=== PATIENT | female | born 1985 | race Caucasian/White ===

== ENCOUNTER 2021-03-05 19:40 | Emergency (ER) | payer OTHER, SELFPAY ==
--- NOTE | ~2021-03-05 | XR_ITS ---
EXAMINATION: XR SHOULDER, LEFT CLINICAL INFORMATION: Injury. Decreased range of motion COMPARISON: None TECHNIQUE: AP external rotation, Grashey, scapular Y, and axillary views of the left shoulder. FINDINGS: The bones and soft tissues are normal. No fracture. Glenohumeral and acromioclavicular alignment is anatomic with normal joint space. No abnormal soft tissue calcifications. XR/XR shoulder LT min 2V IMPRESSION: Unremarkable left shoulder.
[2021-03-05 20:27] VITALS: BP 107/66; PULSE 72; RESP 16; TEMP 36.7; O2SAT 97; BMI 29.2
--- NOTE | 2021-03-05 22:06 | ED_ITS ---
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 Patient work at the [employer], patient was pushing a heavy box and felt a pop in the left shoulder then started to have pain after that, patient is able to move the shoulder pain started after she tried to raise her left shoulder up to 60 degree. Patient otherwise declined any other symptoms. Related Data Previous Rx's Medication Instructions Recorded ibuprofen 600 mg tablet 600 mg PO Q8H PRN #10 tab 03/05/21 Allergies Allergy/AdvReac Type Severity Reaction Status Date / Time No Known Allergies Allergy Unverified 03/05/21 20:33 [No Known Allergies*] Review of Systems Review of Systems: All other systems are reviewed and are negative Constitutional: Reports as per HPI and Reports no additional constitutional complaints Eyes: Reports as per HPI and Reports no additional eye complaints Reports system reviewed and no additional complaints, except as documented Cardiovascular: Reports as per HPI and Reports no additional cardiovascular complaints Respiratory: Reports as per HPI and Reports no additional respiratory complaints Gastrointestinal: Reports as per HPI and Reports no additional gastrointestinal complaints Genitourinary: Reports no additional female genitourinary complaints Musculoskeletal: Reports no additional musculoskeletal complaints Skin/Breast: Reports system reviewed and no additional complaints, except as docu Psychiatric: Reports no additional psychiatric complaints Endocrine: Reports no additional endocrine complaints Hematologic/Lymphatic: Reports no additional hematologic/lymphatic complaints Allergic/Immunologic: Reports no additional allergic/immunologic complaints Reports system reviewed and no additional complaints, except as documented and Reports Abnormal speech present [facility] Past Medical History Medical History Asthma Social History Social History Advance Directives: No Advance Directives Information Provided: No Patient : No Physical Exam Vital Signs: Vital Signs: Last Vital Signs Temp 98.0 F 03/05/21 20:27 Pulse 72 03/05/21 20:27 Resp 16 03/05/21 20:27 BP 107/66 03/05/21 20:27 Pulse Ox 97 03/05/21 20:27 Body Mass Index 29.2 Vital signs have been reviewed as appeared to be correct. Blood pressure normal. Heart rate normal. Respiration rate normal. Temperature normal. Oxygen saturation normal. Appearance: Alert. Oriented X3. No acute distress. Head: Normal external exam. Normocephalic. Atraumatic. No Henry signs noted. No raccoon eyes noted Eyes: PERRLA. EOMI. Conjunctiva and sclera normal. Eyelids normal. ENT: TM's Normal. Pharynx normal. Uvula midline. Moist mucous membranes. No trismus noted. No drooling noted. No muffled voice noted. Neck: Normal inspection. Neck supple. FROM. No adenopathy. Thyroid Normal. No meningeal signs. No neck mass noted. CVS: Normal heart rate and rhythm. Heart sound normal. No murmurs noted. Pulses normal throughout. Respiratory: No respiratory distress. Painless inspiration. Breath sounds normal. No wheezes/rales/rhonchi noted. Chest nontender. No accessory muscle usage noted or decreased air movement noted. Abdomen: Soft and nontender. Bowel sounds normal in all 4 quadrants. No distention noted. No organomegaly noted. No visible injury noted. Back: No CVA tenderness. Full range of motion noted. Skin: Skin warm and dry. Normal skin color. Normal skin turgor. No rashes/lesions/lacerations noted. Extremities: Left shoulder held in adduction position, unable to abduct the shoulder after 45 degree, no deformity, no anterior fullness, neurovascularly intact. Neuro: Oriented X 3. Cranial nerve exam: II-XII are grossly intact No motor deficit. No sensory deficit. Reflexes normal. Course Course Course Narrative: Assessment and plan. 36-year-old female had left shoulder injury while working, physical exam and x- ray are more consistent with rotator cuff tendinitis. Shoulder sling/NSAIDs/wrist/follow-up with Dr. Duron. MDM - Extremity (Nontraumatic) Imaging Data Left shoulder x-ray: Radiologist's impression: The bones and soft tissues are normal. No fracture. Glenohumeral and acromioclavicular alignment is anatomic with normal joint space. No abnormal soft tissue calcifications.? Discharge Plan Discharge Clinical Impression: Tendinitis of left rotator cuff Patient Disposition: Home, Self-Care Instructions: Rotator Cuff Injury (ED), Rotator Cuff Injury Exercises (DC) Prescriptions: New ibuprofen 600 mg tablet 600 mg PO Q8H PRN (Reason: pain) Qty: 10 RF: 0 Referrals: Vaibhav Duron MD [Physician] - 2 days Stand Alone Forms: Work/School Release
[2021-03-05] MEDS: oxyCODONE HCl Immed Release 5 MG TABLET PO (22:24)
[2021-03-05] MEDS: Ibuprofen 600 MG TABLET PO (22:25)
== END 2021-03-05 22:33 | disposition home or self-care (01) ==
PROVIDERS: Emergency Provider Emergency Medicine
DX: M75.32 Calcific tendinitis of left shoulder (principal); Z79.899 Other long term (current) drug therapy
CPT/HCPCS: 73030; 99284

== ENCOUNTER 2021-11-22 14:40 | Emergency (ER) | payer OTHER, SELFPAY ==
[2021-11-22 15:02] VITALS: BP 114/67; PULSE 112; RESP 18; TEMP 36.8; O2SAT 99; BMI 28.7
[2021-11-22 15:27] LABS: COVID-19 Test Positive (Negative); Strep A Nucleic Acid Negative (Negative)
--- NOTE | 2021-11-22 20:12 | ED_ITS ---
HPI - URI/Sore Throat General Chief Complaint: Upper Respiratory Symptoms Stated Complaint: Sore throat/Cough/Body aches Time Seen by Provider: 11/22/21 20:12 Source: patient Mode of arrival: ambulatory Limitations: no limitations History of Present Illness HPI Narrative: 36 yold female presents to the ED for coughing, body, chilss, runny, and fever. Related Data Previous Rx's Medication Instructions Recorded ibuprofen 600 mg tablet 600 mg PO Q8H PRN #10 tab 03/05/21 Allergies Allergy/AdvReac Type Severity Reaction Status Date / Time No Known Allergies Allergy Unverified 03/05/21 20:33 [No Known Allergies*] Review of Systems Review of Systems: fever, runny nose, coughing, sore throat Yes all other systems are reviewed and are negative [facility] Past Medical History Medical History Asthma Social History Social History Advance Directives: No Advance Directives Information Provided: No Physical Exam Vital Signs: Vital Signs: Last Vital Signs Temp 98.3 F 11/22/21 15:02 Pulse 112 H 11/22/21 15:02 Resp 18 11/22/21 15:02 BP 114/67 11/22/21 15:02 Pulse Ox 99 11/22/21 15:02 BMI result Body Mass Index 28.7 Const: General: cooperative, healthy appearing, comfortable, no acute distress, well developed, alert, awake and Physically active Orientation/consciousness: patient oriented x3 HEENT: Head: Yes normal to inspection, Yes No palpable skull fracture present, Yes normocephalic, Yes atraumatic and No abrasion Eyes: General: appearance normal, both eyes and all related structures Neck: Neck: Yes normal visual inspection, Yes full ROM, Yes no lymphadenopathy, Yes no meningeal signs, Yes trachea midline, Yes supple, No anterior neck swelling and No tender Chest: Chest palpation & inspection: normal inspection of the chest and normal palpation of entire chest wall Resp: Effort & Inspection: normal respiratory effort and able to speak in complete sentences Auscultation: clear to auscultation bilaterally Cardio: Jugular venous distension: no JVD Heart sounds: S1 normal heart farnaz nd present and S2 normal heart sound present GI: Inspection: Yes normal to inspection and No abdominal wall ecchymosis Palpation (GI): Soft to palpation, not firm, nontender, no guarding and not rigid : General: No CVA tenderness and Yes no CVA tenderness Back/Spine/Pelvis: Back: no CVA tenderness, No CVA tenderness and No back tenderness Skin: General skin exam: no rashes or lesions noted and elasticity normal Neuro: General: patient oriented x3, gait normal, no meningeal signs and CN's II-XI intact bilaterally Cranial nerves: Yes CN's II-XII intact bilaterally Extrem: General: Yes normal to inspection and Yes full ROM Psych: Appearance: grossly normal, well kempt and not disheveled Course Course Course Narrative: Covid ordered Reevaluation(s) Reevaluation #1: Patient walked out from the ED before I can re-evaluate her and give her COVID education. Patient was informed I had to assist with a traumatic code. WHen I returned to the Room after code patient was no longer in the room to be evaulted adn receive discharge papers. Time: 20:30 MDM - URI/Sore Throat Lab Data Labs: Lab Results 11/22/21 11/22/21 Range/Units 15:04 15:04 COVID-19 (KELLI) Positive A (Negative) COVID-19 Clin Com See Note S. pyogenes GrpA JAIME Negative (Negative) Discharge Plan Discharge Clinical Impression: COVID-19 Patient Disposition: Elopement Instructions: COVID-19 (Coronavirus Disease 2019) (ED) Additional Instructions: Tienes COVID-19. Recomiende el autoaislamiento nick al menos 7 d?as. Regrese al servicio de urgencias por cualquier dolor en el pecho, dificultad para respirar, dolor en las piernas, hinchaz?n de la pantorrilla, tos con kailee, saturaci?n de ox?haley por debajo del 94 % en el pulsiox?metro port?til de la far macia, debilidad o cualquier otro s?ntoma preocupante. Por favor, brad un seguimiento con PCP Prescriptions: No Action ibuprofen 600 mg tablet 600 mg PO Q8H PRN (Reason: pain) Qty: 10 0RF Stand Alone Forms: Work/School Release Discharge Date/Time: 11/22/21 20:12 Print Language: Armenian
== END 2021-11-22 20:12 | disposition left against medical advice (07) ==
PROVIDERS: Emergency Provider Internal Medicine
DX: U07.1 COVID-19 (principal)
CPT/HCPCS: 87635; 87651; 99283

== ENCOUNTER 2023-08-25 03:59 | Emergency (ER) | payer MEDICAID, SELFPAY ==
[2023-08-25 04:09] VITALS: BP 126/77; PULSE 85; RESP 16; TEMP 36.8; O2SAT 97; BMI 29.3
[2023-08-25 04:32] LABS: MANUAL DIFF FLAG NO
[2023-08-25 04:33] LABS: Basophils Absolute Auto 0.1 X10*3/uL (0.0-0.2); Eosinophils Absolute Auto 0.5 X10*3/uL (0.0-0.4); Eosinophils Percent Auto 5.4 % (0-4); Hematocrit 37.9 % (37.0-47.0); Hemoglobin 12.4 g/dl (12.0-16.0); Imm Gran Abs Auto 0.03 X10*3/uL (0.00-0.03); Imm Gran Pct Auto 0.3 % (0.0-0.4); Lymphocytes Absolute Auto 1.7 X10*3/uL (1.2-4.9); Lymphocytes Percent Auto 19.4 % (20-40); Mean Corpuscular HGB Conc 32.7 g/dl (31.0-35.0); Mean Corpuscular Hemoglobin 26.2 pg (27.0-33.0); Monocytes Absolute Auto 0.7 X10*3/uL (0.1-1.2); Monocytes Percent Auto 7.7 % (2-11); Neutrophils Absolute Auto 5.7 x10*3/uL (2.0-8.3); Neutrophils Percent Auto 66.2 % (45-73); Platelet Count 272 X10*3/uL (160-400); Red Blood Count 4.74 X10*6/uL (4.20-5.50); Red Cell Distribution Width 13.9 % (11.0-16.0); White Blood Count 8.7 X10*3/uL (4.8-10.8)
[2023-08-25 04:48] LABS: Alanine Aminotransferase 32 U/L (0-31); Alkaline Phosphatase 151 U/L (39-117); Anion Gap 11 (12-20); Aspartate Amino Transferase 27 U/L (5-31); Bilirubin Total 0.2 mg/dL (0.0-1.0); Blood Urea Nitrogen 20 mg/dL (9-16); Calcium 9.4 mg/dL (8.4-10.2); Carbon Dioxide 23 mmol/L (22-29); Chloride 107 mmol/L (96-108); Creatinine Clr Calc Pharmacy 99.6; Estimated Glomerular Filt Rate > 60; Glucose Random 95 mg/dL (60-115); Lipase 20 U/L (8-78); Potassium 3.8 mmol/L (3.3-5.1); Sodium 137 mmol/L (135-145); Total Protein 6.7 g/dL (6.5-8.0)
--- NOTE | 2023-08-25 05:13 | ED_ITS ---
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 Related Data Previous Rx's Medication Instructions Recorded ketorolac 10 mg tablet 10 mg PO Q6H PRN pain 5 days #20 08/25/23 tabs Allergies Allergy/AdvReac Type Severity Reaction Status Date / Time No Known Allergies Allergy Verified 08/25/23 04:11 [No Known Allergies*] Review of Systems 2 Review of Systems: Pertinent positives and negatives as stated in HPI [facility] Past Medical History Source: nursing notes reviewed Medical History Asthma Social History Social History Advance Directives: No Advance Directives Information Provided: No Physical Exam 2 Vital Signs: Vital Signs: Last Vital Signs Temp 98.3 F 08/25/23 04:09 Pulse 85 08/25/23 04:09 Resp 16 08/25/23 04:09 BP 126/77 08/25/23 04:09 Pulse Ox 97 08/25/23 04:09 O2 Del Method Room Air 08/25/23 04:09 BMI result Body Mass Index 29.3 VITAL SIGNS: Reviewed. GENERAL: Well developed, well nourished, in no acute distress. HEAD: Normocephalic/atraumatic EYES: PERRLA, EOMI EARS: Ext canals without abnormality NOSE: Nares patent bilateral OROPHARYNX: no oral lesions noted, posterior pharynx clear NECK: Supple, no adenopathy LUNGS: Normal breath sounds. No adventitious sounds or accessory muscle use. SpO2<97> CARDIOVASCULAR: Regular rate and rhythm without noted murmurs ABDOMEN: Soft, non-tender, non-distended with bowel sounds. BACK: No midline vertebral tenderness to palpation or step-offs noted, mild paraspinal tenderness to palpation over the L4-L5 paraspinal area MUSCULOSKELETAL: No tenderness, deformities, or effusions noted on gross inspection. EXTREMITIES: No cyanosis, clubbing or edema. SKIN: Inspection of the skin reveals no rashes NEUROLOGIC: Alert and oriented x 4. Strength and sensation to light touch were grossly intact x 4. Medical Decision Making Medical Decision Making [facility] Narrative: 38-year-old female with history and clinical presentation DDX: UTI, low clinical suspicion for renal colic and no clinical suspicion for equina. Patient will receive combination analgesics and lidocaine patch. I reviewed all investigations and hematologic indices are negative for leukocytosis or left shift and there is no anemia or thrombocytopenia. Chemistry indices do not demonstrate an JUDSON or electrolyte derangements and patient has a chronically elevated ALT the suspect is secondary to fatty liver. Lipase is within normal limits. Urinalysis is negative for UTI or hematuria. My interpretation is it patient is experiencing acute on chronic back pain without concerning neurologic deficits or infections. She is otherwise discharged home instructed follow-up with primary care doctor. Differential Diagnosis Differential Diagnoses: The differential diagnosis associated with the presentation includes Please see the discussion above Admission/Observation Consideration of admission/observation: Escalation of care including admission/observation considered Please see this discussion Lab Data MDM Lab Attestation statement: I reviewed the patient's lab results. Please see the discussion above 08/25/23 04:28 08/25/23 04:28 Labs: Lab Results 08/25/23 08/25/23 Range/Units 04:28 05:19 WBC 8.7 (4.8-10.8) X10*3/uL RBC 4.74 (4.20-5.50) X10*6/uL Hgb 12.4 (12.0-16.0) g/dl Hct 37.9 (37.0-47.0) % MCV 80.0 (80.0-98.0) fL MCH 26.2 L (27.0-33.0) pg MCHC 32.7 (31.0-35.0) g/dl RDW 13.9 (11.0-16.0) % Plt Count 272 (160-400) X10*3/uL MPV 12.0 (9.4-12.3) fL Immature Gran % (Auto) 0.3 (0.0-0.4) % Neut % (Auto) 66.2 (45-73) % Lymph % (Auto) 19.4 L (20-40) % [place] % (Auto) 7.7 (2-11) % Eos % (Auto) 5.4 H (0-4) % Baso % (Auto) 1.0 (0-2) % Lymph # (Auto) 1.7 (1.2-4.9) X10*3/uL [place] # (Auto) 0.7 (0.1-1.2) X10*3/uL Eos # (Auto) 0.5 H (0.0-0.4) X10*3/uL Baso # (Auto) 0.1 (0.0-0.2) X10*3/uL Abs Immat Gran (auto) 0.03 (0.00-0.03) X10*3/uL Absolute Neuts (auto) 5.7 (2.0-8.3) x10*3/uL Absolute Nucleated RBC 0.000 (0.0-0.012) X10*3/uL Nucleated RBC % (auto) 0.0 (0.0-0.2) /100WBC Sodium 137 (135-145) mmol/L Potassium 3.8 (3.3-5.1) mmol/L Chloride 107 (96-108) mmol/L Carbon Dioxide 23 (22-29) mmol/L Anion Gap 11 L (12-20) BUN 20 H (9-16) mg/dL Creatinine 0.70 (0.5-1.4) mg/dL Estim Creat Clear Calc 99.6 Estimated GFR > 60 Random Glucose 95 (60-115) mg/dL Calcium 9.4 (8.4-10.2) mg/dL Total Bilirubin 0.2 (0.0-1.0) mg/dL AST 27 (5-31) U/L ALT 32 H (0-31) U/L Alkaline Phosphatase 151 H (39-117) U/L Total Protein 6.7 (6.5-8.0) g/dL Albumin 4.0 (3.5-5.0) g/dL Lipase 20 (8-78) U/L Urine Color Yellow Urine Appearance Clear Urine pH 7.0 (5.0-9.0) Ur Specific [place] 1.020 (1.005-1.025) Urine Protein Negative (Neg-Trace) mg/dL Urine Glucose (UA) Negative (Negative) mg/dL Urine Ketones Negative (Negative) mg/dL Urine Blood Negative (Negative) Urine Nitrite Negative (Negative) Ur Leukocyte Esterase Negative (Negative) External Record Review External record reviewed: Outpatient record and Prior outpatient labs Critical Care Time Critical Care Time Critical Care Time: Yes Total Critical Care Time: 30 Attestation: I personally attest to this time spent taking care of the patient. Discharge Plan Discharge Clinical Impression: Acute exacerbation of chronic low back pain Patient Disposition: Home, Self-Care Instructions: Back Pain (ED), Lower Back Exercises (ED) Additional Instructions: 1. Tylenol 1000 mg, por v?a oral, cada 6 horas seg?n sea necesario para controlar el dolor. No exceda los 4000 mg en 24 horas. 2. Parche de lidoca?na, apl?quelo en el ?justo de m?xima sensibilidad haseeb se indica en el paquete exterior. 3. Josh un seguimiento con quispe m?dico de atenci?n primaria para analizar dora posible derivaci?n a fisioterapia. Regrese a la arminda de emergencias si los s?ntomas empeoran. 1. Tylenol 1000 mg, orally, every 6 hours as needed for pain control. Do not exceed 4000 mg within 24 hours. 2. Lidocaine patch, apply to area of maximal tenderness as directed on the outside packaging. 3. Follow-up with your primary care doctor to discuss possible referral to physical therapy. Return to the ER for any worsening symptoms. Prescriptions: New ketorolac 10 mg tablet 10 mg PO Q6H PRN (Reason: pain) 5 Days Qty: 20 0RF Rx Instructions: Patient received Toradol in the emergency room. Discontinued ibuprofen 600 mg tablet 600 mg PO Q8H PRN (Reason: pain) Qty: 10 0RF Print Language: Welsh
[2023-08-25 05:25] LABS: Appearance Urine Clear; Color Urine Yellow; Glucose Urine UA Negative (Negative); Leukocyte Esterase Urine Negative (Negative); Nitrite Urine Negative (Negative); Urine Blood Negative (Negative); Urine Ketones Negative (Negative); Urine Protein Negative (Neg-Trace)
[2023-08-25] MEDS: Lidocaine 4 % Patch ADH..PATCH 1 PATCH TRANSDERMA (06:04)
[2023-08-25] MEDS: Ketorolac Tromethamine 15 MG/ML VIAL IM (06:05)
[2023-08-25] MEDS: Acetaminophen 325 MG TABLET 975 MG PO (06:05)
== END 2023-08-25 06:18 | disposition home or self-care (01) ==
PROVIDERS: Emergency Provider Student in an Organized Health Care Education/Training Program
DX: M54.50 Low back pain, unspecified (principal); R35.0 Frequency of micturition; Z79.899 Other long term (current) drug therapy
CPT/HCPCS: 36415; 80053; 81003; 83690; 85025; 96372; 99283; 99284; J1885

== ENCOUNTER 2023-12-13 20:44 | Emergency (ER) | payer MEDICAID, SELFPAY ==
[2023-12-13 21:02] VITALS: BP 116/76; PULSE 93; RESP 18; TEMP 36.7; O2SAT 100; BMI 27.8
[2023-12-13 23:32] VITALS: BP 104/63; PULSE 68; RESP 20; TEMP 36.4; O2SAT 97
--- NOTE | 2023-12-13 23:49 | ED_ITS ---
HPI - General Adult General Chief complaint: General Medical Stated complaint: rectal pain and pressure Time Seen by Provider: 12/13/23 23:40 Source: patient Mode of arrival: ambulatory Limitations: no limitations History of Present Illness HPI narrative: Patient is a 38 year old female who presents emergency department with approximate 24 hours of rectal spasming. Reports pain only felt during times of spasming, states spasm typically lasts a few minutes before self-resolving. She denies any precipitating trauma, injury, or foreign body insertion into the rectum. She denies constipation, diarrhea, straining for bowel movement, hematochezia, melena. Denies history of fissure or hemorrhoids. She denies associated pelvic pain, abdominal pain or back pain. Denies symptoms. Denies currently menstruating. States she has never had a colonoscopy, denies recent unintentional weight loss, anorexia, nausea, vomiting. Denies history of colon cancer in immediate family members. Related Data Previous Rx's ?Medication ?Instructions ?Recorded ketorolac 10 mg tablet 10 mg PO Q6H PRN pain 5 days #20 08/25/23 tabs hydrocortisone acetate 25 mg 25 mg MO BID #24 ea 12/14/23 rectal suppository (Anusol-HC) Allergies Allergy/AdvReac Type Severity Reaction Status Date / Time No Known Allergies Allergy Verified 12/13/23 21:05 [No Known Allergies*] Review of Systems Review of Systems: Yes all other systems are reviewed and are negative COUNTS INCLUDE 234 BEDS AT THE [facility] Past Medical History Attestation statement: The following information was validated with the patient. Source: old records reviewed Medical History Asthma Social History Social History Smoked in Last 30 Days: No Advance Directives: No Advance Directives Information Provided: No Do you have a plan to hurt others: No Plan Patient : No Physical Exam ED Vital Signs: Vital Signs - 24 hr 12/13/23 21:02 12/13/23 23:32 Temperature 98.0 F 97.6 F Pulse Rate 93 68 Respiratory Rate 18 20 Blood Pressure 116/76 104/63 Pulse Oximetry 100 97 Oxygen Delivery Method Room Air Room Air BMI result Body Mass Index 27.8 Appearance: Alert.?Oriented to person, place and time. No acute distress.?Normal affect.? Neck: Normal inspection.? Neck supple.?? CVS: Heart sounds normal. Normal heart rate and rhythm.? Pulses normal.?? Respiratory: No respiratory distress.? Lung sounds clear to auscultation bilaterally?? Abdomen: Soft and non-tender. Normoactive bowel sounds.? Rectal: Performed with size changer, ED RN. Noted to have increased rectal tone with palpable spasming during digital rectal examination, able to palpate internal hemorrhoid, no bleeding. No external hemorrhoids or fissures. Skin: Skin warm and dry.? Normal skin color.? Neuro: Moves all extremities spontaneously. Sensation intact bilaterally. Ambulates with normal steady gait. Medications Administered Discontinued Medications Generic Name Dose Route Start Last Admin Trade Name Freq PRN Reason Stop Dose Admin Lidocaine HCl 10 ml 12/14/23 00:10 12/14/23 00:59 Lidocaine Hcl 2 % Urojet 10 Ml Jel.Pf.Bree TOPICAL 12/14/23 00:11 Not Given ONCE ONE Medical Decision Making Medical Decision Making MDM Narrative: Patient is a 38-year-old female presenting to emergency department for evaluation rectal spasming as per HPI. Overall she appears well, afebrile. Head examination is without external hemorrhoids or fissure, she does have a palpable internal hemorrhoid on digital rectal examination with evidence of rectal spasming. Suspect pain and spasm secondary to internal hemorrhoids, po ssibly internal fissure, patient agreeable to treatment plan with inserting topical Lidocaine for symptomatic management. Improvement in pain significantly, resolution of spasming. At this time stable for discharge, outpatient follow-up with primary care provider. All questions answered. Differential Diagnosis Differential Diagnoses: The differential diagnosis associated with the presentation includes (See narrative above) Prescription Management I considered prescription management with: Other (See narrative above) Discharge Plan Discharge Clinical Impression: Internal hemorrhoid Patient Disposition: Home, Self-Care Instructions: Hemorrhoids (ED) Prescriptions: New hydrocortisone acetate [Anusol-HC] 25 mg suppository 25 mg MO BID Qty: 24 0RF No Action ketorolac 10 mg tablet 10 mg PO Q6H PRN (Reason: pain) 5 Days Qty: 20 0RF Rx Instructions: Patient received Toradol in the emergency room. Referrals: Physician,Unknown J [Primary Care Provider] - Print Language: Malay
[2023-12-14 01:42] VITALS: BP 104/63; PULSE 68; RESP 20; TEMP 36.4; O2SAT 97
== END 2023-12-14 01:44 | disposition home or self-care (01) ==
PROVIDERS: Emergency Provider Internal Medicine
DX: K64.8 Other hemorrhoids (principal); K62.89 Other specified diseases of anus and rectum
CPT/HCPCS: 99283; 99284

== ENCOUNTER 2025-02-15 12:14 | Emergency (ER) | payer OTHER, SELFPAY ==
[2025-02-15 12:30] VITALS: BP 108/66; PULSE 82; RESP 16; TEMP 36.7; O2SAT 99; BMI 26.8
--- NOTE | 2025-02-15 12:34 | ED.GENADULT ---
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 Her pain started 5 days ago pain Denies any trauma. 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 She reports frequent repetitive motions. She states that about 5 years ago she had surgery for her right wrist carpal The pain is 8/10 Related Data Previous Rx's ?Medication ?Instructions ?Recorded ketorolac 10 mg tablet 10 mg PO Q6H PRN pain 5 days #20 08/25/23 tabs hydrocortisone acetate 25 mg 25 mg ME BID #24 ea 12/14/23 rectal suppository (Anusol-HC) ibuprofen 600 mg tablet 600 mg PO Q6H PRN pain #20 tabs 02/15/25 Allergies Allergy/AdvReac Type Severity Reaction Status Date / Time No Known Allergies (No Known Allergy Verified 02/15/25 12:32 Allergies*) Review of Systems Constitutional: Constitutional: Denies body ache(s), Denies chills, Denies fatigue and Denies fever(s) Cardiovascular: Cardiovascular: Denies chest pain Gastrointestinal: Gastrointestinal: Denies abdominal pain Musculoskeletal: Musculoskeletal: Reports arthralgias, Reports joint swelling and Reports limited range of motion Endocrine: Endocrine: Denies fatigue PMFSH Past Medical History Medical History Asthma Social History Social History Advance Directives: No Advance Directives Information Provided: Yes Do you have a plan to hurt others: No Plan Physical Exam ED Vital Signs: Vital Signs - 24 hr 02/15/25 12:30 02/15/25 13:02 Temperature 98.1 F 98.1 F Pulse Rate 82 82 Respiratory Rate 16 16 Blood Pressure 108/66 108/66 Pulse Oximetry 99 99 Oxygen Delivery Method Room Air Room Air BMI result Body Mass Index 26.8 Const General: healthy appearing, comfortable, no acute distress, alert and awake Nutritional Appearance: well nourished Orientation/consciousness: patient oriented x3 HENMT Head: Yes normocephalic and Yes atraumatic Eyes Eyelids: Yes eyelids normal Conjunctivae: conjunctivae normal Sclerae: sclerae normal Corneas: corneas normal Pupils: Equal, round and reactive pupils present EOM: EOMs intact bilaterally Neck Neck: Yes full ROM Resp Effort & Inspection: normal respiratory effort, able to speak in complete sentences and not labored Skin General skin exam: elasticity normal Neuro General: patient oriented x3 Cranial nerves: Yes Equal, round and reactive pupils present and Yes Bilaterally intact EOM present Cognition (Neuro): normal cognition Extrem Other: There was no obvious deformity to the left wrist. The patient has a positive Tinel sign. She retains full range of motion to the left wrist and all digits of the left hand. Radial pulses 2+ and equal. Medical Decision Making Medical Decision Making [facility] Narrative: 40-year-old female presents for evaluation of left wrist pain. This was atraumatic. No evidence of trauma, there are no evidence of infection. The patient's history exam is most consistent with carpal tunnel syndrome. She has a history of this requiring surgical repair on the right side. She will be referred to hand surgery and given instructions for symptomatic treatment Differential Diagnosis Differential Diagnoses: The differential diagnosis associated with the presentation includes Left wrist pain Carpal tunnel syndrome Gout Arthritis less likely Tests considered The following testing was considered but not selected: Consider x-ray imaging of the left wrist but this was ultimately deferred due to lack of trauma or deformity Discharge Plan Discharge Clinical Impression: Acute carpal tunnel syndrome of left wrist Patient Disposition: Home, Self-Care Instructions: Carpal Tunnel Surgery (DC) Additional Instructions: It is likely that you have carpal tunnel syndrome of the left wrist pain You may require surgery, I sent a referral to the hand surgeon, Dr. Robison. Call to schedule an appointment. Use ibuprofen as needed for pain. Avoid heavy lifting or strenuous activity. Use ibuprofen as needed for pain Prescriptions: New ibuprofen 600 mg tablet 600 mg PO Q6H PRN (Reason: pain) Qty: 20 0RF No Action ketorolac 10 mg tablet 10 mg PO Q6H PRN (Reason: pain) 5 Days Qty: 20 0RF Rx Instructions: Patient received Toradol in the emergency room. hydrocortisone acetate [Anusol-HC] 25 mg suppository 25 mg ME BID Qty: 24 0RF Referrals: Cyndi Robison MD [Physician, Hand Surgery] Referral Note: carpal tunnel left wrist Interventions: ED Discharge Assessment Last Done: 02/15/25 13:02 Discharge Date/Time: 02/15/25 13:03 Print Language: [place]
[2025-02-15 13:02] VITALS: BP 108/66; PULSE 82; RESP 16; TEMP 36.7; O2SAT 99
== END 2025-02-15 13:03 | disposition home or self-care (01) ==
PROVIDERS: Emergency Provider Emergency Medicine; PCP Internal Medicine Geriatric Medicine
DX: G56.02 Carpal tunnel syndrome, left upper limb (principal); M79.642 Pain in left hand; M25.532 Pain in left wrist
CPT/HCPCS: 99282; 99283

== ENCOUNTER 2025-03-06 13:06 | Outpatient (REF) | payer OTHER, SELFPAY ==
--- NOTE | 2025-03-06 13:10 | EMG_ITS ---
Chief complaint: Diagnosed left Carpal Tunnel Syndrome 6 years ago but no surgery yet. Started having numbness again 3 months ago. History of right CTR 6 years ago. Reason for referral: Evaluate for Carpal Tunnel Syndrome Referred by: Negrito LERNER Procedure done: Left upper extremity NCS/EMG Precautions and/or limitations: None The limb temperature was monitored continuously and remained between 32-36 degrees C during the performance of the NCS. Nerve Conduction Studies Anti Sensory Summary Table ?Stim Site NR Onset (ms) Norm Onset (ms) Peak (ms) Norm Peak (ms) O-P Amp (?V) Norm O-P Amp Site1 Site2 Delta-0 (ms) Dist (cm) Rod (m/s) Norm Rod (m/s) Left Median Anti Sensory (2nd Digit) Wrist ? 2.9 4.0 <3.6 17.8 >10 Wrist 2nd Digit 2.9 14.0 48 Left Radial Anti Sensory (Thumb) Forearm ? 1.5 2.0 <3.1 52.7 Forearm Thumb 1.5 0.0 Left Ulnar Anti Sensory (5th Digit) Wrist ? 2.1 2.8 <3.7 39.1 >15.0 Wrist 5th Digit 2.1 14.0 67 Motor Summary Table ?Stim Site NR Onset (ms) Norm Onset (ms) O-P Amp (mV) Norm O-P Amp iAmp (mV) Amp (1st) (%) Site1 Site2 Delta-0 (ms) Dist (cm) Rod (m/s) Norm Rod (m/s) Left Median Motor (Abd Poll Brev) Wrist ? 4.6 <3.9 10.8 >4.5 13.2 100.0 Elbow Wrist 2.7 19.0 70 >45 Elbow ? 7.3 10.9 13.4 100.9 Left Ulnar Motor (Abd Dig Minimi) Wrist ? 2.4 <3.0 9.8 >5 11.4 100.0 B Elbow Wrist 2.8 16.5 59 >45 B Elbow ? 5.2 7.4 9.3 75.5 A Elbow B Elbow 1.6 10.0 63 >45 A Elbow ? 6.8 7.2 9.4 73.5 EMG ?Side Muscle Nerve Root Ins Act Fibs Psw Amp Dur Poly Recrt Int Pat Comment Left 1stDorInt Ulnar C8-T1 Nml Nml Nml Nml Nml 0 Nml Complete Left FlexCarRad Median C6-7 Nml Nml Nml Nml Nml 0 Nml Complete Left FlexCarpiUln Ulnar C8,T1 Nml Nml Nml Nml Nml 0 Nml Complete Left Biceps Musculocut C5-6 Nml Nml Nml Nml Nml 0 Nml Complete Left Triceps Radial C6-7-8 Nml Nml Nml Nml Nml 0 Nml Complete Left Deltoid Axillary C5-6 Nml Nml Nml Nml Nml 0 Nml Complete FINDINGS: Left median motor nerve showed prolonged distal latency, normal amplitude and normal conduction velocity. Left median sensory nerve showed prolonged peak latency. All other nerves tested were within normal. Concentric needle EMG was performed in selected muscles of the left upper extremity. Study did not reveal signs of electric abnormalities as shown in the table above. IMPRESSION: 1. This is an abnormal study. 2. There is electrodiagnostic evidence for left moderate-severe median neuropathy at the wrist, consistent with carpal tunnel syndrome. 3. There is no electrodiagnostic evidence for ulnar neuropathy, brachial plexopathy, or cervical radiculopathy. Thank you for your kind referral. Camelia Vidales MD, SALIMA Board Certified, [place] Board of Physical Medicine and Rehabilitation (ABPMR) Board Certified, [place] Board of Electrodiagnostic Medicine (ABEM) [place] [id number] [facility] [place]
--- OUTSIDE RECORDS SUMMARY | 2025-03-06 16:41 | XMS_ITS | Clinical Summary ---
Author Organization [facility] Address [address] [place] [address] Care Team Providers Care Test Borer Name Role Phone Dorys Alfaro PA-C Primary Care Provider Source Comments PLEASE NOTE, if this patient is a minor, it may be UNLAWFUL to discuss sensitive information that is contained in these records (such as FAMILY PLANNING, MENTAL HEALTH or SUBSTANCE ABUSE) with the minor patient's parent or other person without the patient's specific authorization.[facility] Allergies No known active allergies Medications miscellaneous medical supply miscIndication s:Bilateral carpal tunnel syndrome by miscellaneous route once daily Bilateral CTS splint, disp 1pair, dx bilateral CTS, lifetime need 1 Each 9 Active acetaminophen (TYLENOL) 500 mg tabletIndicati ons:Left-sided chest pain,Acute pain of left shoulder Take 1 Tablet by mouth every 6 (six) hours as needed for pain 60 Tablet 1 2 Active benzonatate (TESSALON) 200 mg capsuleIndicat ions:COVID-19 Take 1 Capsule by mouth 3 (three) times daily as needed for cough 15 Capsule 2 Active VENTOLIN HFA 90 mcg/actuation inhaler INHALE 2 PUFFS INTO THE LUNGS EVERY 4 (FOUR) HOURS NEEDED FOR SHORTNESS OF BREATH 18 g 4 3 Active diclofenac sodium (VOLTAREN) 1 % gelIndications :Left-sided chest pain,Acute pain of left shoulder APPLY TOPICALLY 2 (TWO) TIMES DAILY NEEDED FOR PAIN 100 g 1 3 Active omeprazole (PRILOSEC) [address] capsule TAKE 1 CAPSULE BY MOUTH EVERY MORNING BEFORE BREAKFAST DO NOT CRUSH OR CHEW. 90 Capsule 1 4 Active Active Problems Problem Noted Date Diagnosed Date Overweight 09/01/2018 LSIL cannot exclude HSIL, Hi gh risk HPV positive 07/23/2016, STEPHANIE 1 on colpo 09/30/2016 08/06/2016 H. pylori infection 04/2016 s/p treatment 2016 Liver hemangioma (1.3cm) on ultrasound 05/10/2016, repeat ultrasound in 6 months for stability 05/06/2016 ALEJANDRO (nonalcoholic steatohepatitis) 05/06/2016 Gastritis 05/06/2016 Bilateral ovarian cysts 05/06/2016 Functional constipation 05/06/2016 S/P tubal ligation 05/06/2016 Immunizations Immunization Administration Dates Next Due HEP A-HEP B ([place]) 09/01/2018 PFIZER COVID VACCINE, PURPLE CAP, 12+ 05/20/2021 Social History Tobacco Use Types Packs/Day Years Used Date Smoking Tobacco: Never Smokeless Tobacco: Never Alcohol Use Standard Drinks/Week Comments Yes 3 (1 standard drink = 0.6 oz pur e alcohol) social Social Connections Answer Date Recorded Connectedness 0 02/25/2024 Financial Resource Strain Answer Date R ecorded Financial Resource Strain 0 2018 Stress Answer Date Recorded Stress 0 02/11/2019 Physical Activity Answer Date Recorded Physical Activity 0 02/11/2019 Food Insecurity Answer Date Recorded Food 0 03/15/2024 Transportation Needs Answer Date Record ed Transportation 0 02/11/2019 Housing Stability Answer Date Recorded Housing 0 02/11/2019 Safety and Environment Answer Date Sunil rded Safety 0 04/11/2019 Utilities Answer Date Recorded Utilities 0 02/11/2019 Employment Answer Date Recorded Employment 0 02/11/2019 Comments No Sex and Gender Information Value Date Recorded Sex Assigned at Female 04/04/2017 5:40 PM PDT Legal Sex Female 7:18 AM PDT Gender Identity Female 04/04/2017 5:40 PM PDT Sexual Orientation Straight 04/04/2017 5: 40 PM PDT Last Filed Vital Signs Vital Sign Reading Time Taken Comments Blood Pressure 126/77 10/05/2021 3:28 PM EDT Pulse 100 10/05/2021 3:28 PM EDT Temperature 36.8 C (98.3 F) 10/05/2021 3:28 PM EDT Respiratory Rate 16 10/05/2021 3:28 PM EDT Oxygen Saturation 99% 05/29/2019 3:19 PM EST Inhaled Oxygen Concentration - - Weight 70.8 kg (156 lb) 10/05/2021 3:28 PM EDT Height 157.5 cm (5' 2 ) 05/29/2019 3:19 PM EST Body Mass Index 28.53 05/29/2019 3:19 PM EST Plan of Treatment Health Maintenance Due Date Last Done Comments Anxiety Screening 1983 HPV Screening 1983 Pap + HPV 1983 Tobacco Screening 1983 Imm-DTaP/Tdap/Td (1 - Tdap) 2002 Imm-HPV (1 - 3-dose SCDM series) 2010 Imm-Hepatitis B (2 of 3 - He p B Twinrix 3-dose series) 09/29/2018 09/01/2018 Annual Wellness (Adult): Indicated (All Coverage) 09/02/2019 09/01/2018, 08/22/2017, 07/23/2016, Additional history exists Relationship Safety Screening/Counseling 04/11/2020 04/11/2019 Cervical Cancer Screening 08/22/2020 Pap Smear 08/22/2020 08/22/2017, 0408/2016, 07/23/2016, Additional history exists Diabetes Screening 05/29/2022 05/29/2019, 0 09/01/2018, 05/06/2016, Additional history exists Hypertension Screening (#1) 10/05/2022 Breast Cancer Screening (Mammogram) 2023 Lipid Screening 09/02/2023 09/01/2018, 05/06/2016 Alcohol and Drug Screen 06/20/2024 09/01/2018, 05/06 Depression Annual Screen 06/20/2024 09/01/2018 [id number] ( season) 2025 05/20/2021, 10/28/2020, 10/07/2020 Hepatitis C Screening Completed 05/06/2016 HIV Screening Completed 05/29/2019 Syphilis Screening Discontinued 05/29/2019 Imm-Influenza Discontinued 06/03/2020 Cervical Ablation/Cold-Knife Conization Discontinued Cervical Cryotherapy Discontinued Colposcopy Discontinued Endometrial Biopsy Discontinued Excision/Leep Discontinued HPV Genotyping Discontinued Vaginal Pap Discontinued Vulvoscopy Discontinued Procedures Procedure Name Priority Date/Time Associated Diagnosis Comments ANTIBODY HIV-1&HIV-2 SINGLE RESULT Routine 05/29/2019 3:51 PM EST Menometrorrhagia Hair loss FTA-ABS, SERUM Routine 05/29/2019 3:51 PM EST Menometrorrhagia COMPREHENSIVE METABOLIC PANEL Routine 05/29/2019 3:51 PM EST Menometrorrhagia Hair loss LIPID PANEL Routine 09/01/2018 10:05 AM EDT Routine general medical examination at a health care facility PAP, LIQUID BASED Routine 08/22/2017 4:0 6 PM EST LSIL, High risk HPV positive 08/22/2017, STEPHANIE 1 on colpo 09/30/2016 Encounter for gynecological examination without abnormal finding Cervical cancer screening HEPATITIS A,B,C PANEL Routine 05/06/2016 11:18 AM EST Routine general medical examination at a health care facility from Last 3 Months or Most Recently Relevant to Health Maintenance Results * FTA-ABS, SERUM (05/29/2019 3:51 PM EST) TREPONEMAL AB NEGATIVE NEGATIVE [employer] [facility] 05/29/2019 3:51 PM EST 05/29/2019 3:57 PM EST Narrative [facility] - 05/29/2019 7:27 PM EST [employer], [place] [address] Fiscal Agent - Celestina Moore MD PT ID [id number] ORD# [id number] us Dorys Alfaro PA-C LAB - BLOOD [place] [address], * HIV-1 & HIV-2 ANTIBODIES (05/29/2019 3:51 PM EST) Pathologist [facility] HIV 1 AND 2 ANTIBODY SCREEN NEGATIVE NEGATIVE [facility] Comment: This assay is a 4th generation assay allowing for earlier detection of HIV infection by detecting the presence of the HIV-1 p24 antigen as well as the traditional antibodies to HIV type 1 (including group O) and type 2. Use of a 4th generation assay is the current CDC recommendation for HIV screening. Blood specimen (specimen) Blood / Unknown 05/29/2019 3:51 PM EST 05/29/2019 3:57 PM EST Narrative [facility] - 05/29/2019 7:56 PM EST [facility], [place] [address] Fiscal Agent - Celestina Moore MD PT ID [id number] ORD# [id number] oDrys Alfaro PA-C LAB - BLOOD DRAW Final Resul t Performing Organization Address City/State/[place] [address], * (ABNORMAL) COMPRE METAB PANEL (05/29/2019 3:51 PM EST) [facility] GLUCOSE 81 70 - 100 mg/dL [facility] Comment:Reference range appl icable to fasting specimens only BUN 16 5 - 25 mg/dL [facility] CREAT 0.78 0.5 - 1.1 mg/dL [facility] GLOMERULAR FILTRATION RATE > 60 [facility] Comment: If patient is -[place], multiply result by 1.21 Chronic Kidney Disease: < 60 ml/min/1.73 square meters Kidney Failure: < 15 ml/min/1.73 square meters SODIUM 136 135 - 145 mEq/L [facility] POTASSIUM 4.2 3.5 - 5.5 mmol/L [facility] CHLORIDE 104 96 - 110 mmol/L [facility] CO2 26 21 - 32 mmol/L [facility] ANION GAP 6 3 - 11 [facility] CALCIUM 10.1 8.5 - 10.5 mg/dL [facility] ALBUMIN 4.1 3.2 - 5.0 G/dL [facility] SGOT 37 10 - 42 U/L [facility] SGPT 105(H) 10 - 60 U/L [facility] TOTAL PROTEIN 7.6 6.0 - 8.0 G/dL [facility] BILI, TOTAL 0.4 0.0 - 1.4 mg/dL [facility] ALK PHOS 137(H) 42 - 121 U/L [facility] Blood specimen (specimen) Blood / Unknown 05/29/2019 3:51 PM EST 05/29/2019 3:57 PM EST Narrative [facility] - 05/29/2019 7:09 PM EST [employer], [place] [address] Fiscal Agent - Celestina Moore MD PT ID [id number] ORD# [id number] us Dorys Alfaro PA-C LAB - BLOOD DRAW [place] [address], * (ABNORMAL) LIPID PANEL (09/01/2018 10:05 AM EDT) CHOLESTEROL 175 0 - 200 mg/dL [facility] TRIGLYCERIDES 55 0 - 150 mg/dL [facility] HDL CHOLESTEROL 61 >40 mg/dL [facility] LDL CALCULATED 103(H) 0 - 100 mg/dL [facility] TC-HDLC RATIO 2.9 0 - 4.4 mg/dL [facility] Blood specimen (specimen) Blood / Unknown 09/01/2018 10:05 AM EDT 09/01/2018 10:26 AM EDT Narrative [facility] - 09/01/2018 12:13 PM EDT [employer], a member of [address] [address] Fiscal Agent - Cyndi Lang MD PT ID [id number] ORD# [id number] Dorys Alfaro PA-C LAB - BLOOD DRAW Final Resul t [facility] [address] [place] [address], [place] [phone] * (ABNORMAL) PAP, LIQUID BASED (08/22/2017 4:06 PM EST) PAP abnormal NORMAL - ABNORMAL [facility] Comment:LSIL, high risk HPV positive Specimen from uterine cervix (specimen) Cervix uteri structure / Unknown 08/22/2017 4:06 PM EST Dorys Alfaro PA-C LAB - PATHOLOGY AND CYTOLOGY AMBULATORY Final Result Performing Organization Address [facility]/ZIP Co de Phone Number [facility] [address] [place] [address], [place] [phone] * HEPATITIS A,B,C PANEL (05/06/2016 11:18 AM EST) HEPATITIS B SURFACE ANTIBODY NEGATIVE NEGATIVE [facility] HEPATITIS B SURFACE ANTIGEN NEGATIVE NEGATIVE [facility] HEPATITIS C VIRUS DIAGNOSTIC NEGATIVE NEGATIVE [facility] HEPATITIS B CORE ANTIBODY NEGATIVE NEGATIVE [facility] HEPATITIS A ANTIBODY TOTAL NEGATIVE NEGATIVE [facility] Blood specimen (specimen) Blood / Unknown 05/06/2016 11:18 AM EST 05/06/2016 11:49 AM EST Narrative [facility] - 05/06/2016 4:51 PM EST [employer] [address] [place] [address] PT ID [id number] ORD# [id number] Dorys Alfaro PA-C LAB - BLOOD DRAW Edited Resu lt - Final [employer] [address], [place] [phone] from Last 3 Months or Most Recently Relevant to Health Maintenance Insurance [facility] NET DENTAL [id number] Care Teams Test Borer Relationship Specialty Start Date End Date oDrys Alfaro PA-C [address] [place] [phone] PCP - General Internal Medicine 02/27/16
--- OUTSIDE RECORDS SUMMARY | 2025-03-06 16:41 | XMS_ITS | Clinical Summary ---
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 Name Role Phone Unavailable Primary Care Provider Unavailabl e Encounters Date Type Department Care Team Description 02/12/2025 Travel 02/06/2025 Travel 01/09/2025 Telephone [facility] [address] [place] [address] Santa Burns MD from Last 3 Months Social History Tobacco Use Types Packs/Day Years Used Date Smoking Tobacco: Never Assessed Comments Unknown Sex and Gender Information Value Date Recorded Sex Assigned at Female 04/19/2022 10:36 AM EDT Legal Sex Female 10:36 AM EDT Gender Identity Not on file Sexual Orientation Not on file Plan of Treatment Upcoming Encounters Date Type Department Care Team (Late st Contact Info) Description 04/16/2025 1:15 PM EDT Office Visit [facility] [address] [place] [address] Name, MD Corey [address] [place] [address] Health Maintenance Due Date Last Done Comments Depression Screening 1983 SDOH Screening 1983 Disability Screening 1983 Alcohol/Substance Use Screening 1995 Tobacco Screening 1995 Family Planning (PISQ) 1998 HPV Vaccines (1 - 3-dose series) 1998 Hepatitis C Screening 2001 DTaP/Tdap/Td Vaccines (1 - Tdap) 2002 Pap Smear 01/27/2004 Cervical Cancer Screening 2013 HPV/Cotest 2013 Hepatitis A Vaccines (2 of 3 - Hep A Twinrix risk 3-dose series) 09/29/2018 09/01/2018 Hepatitis B Vaccines (2 of 3 - Hep B Twinrix 3-dose series) 09/29/2018 09/01/2018 Mammogram 2023 COVID-19 Vaccine (2 - 2024-2 6 season) 2025 05/20/2021 Influenza Vaccine (#1) 2025 Zoster Vaccines (1 of 2) 2033 RSV Patients and Pa tients Aged 60 years or older (1 - 1-dose 75+ series) 2058 HIV Screening Completed 05/29/2019 HIB Vaccines Aged Out No longer eligi ble based on patient's age to complete this topic IPV Vaccines Aged Out No longer eligi ble based on patient's age to complete this topic Meningococcal B Vaccine Aged Out No l onger eligible based on patient's age to complete this topic Meningococcal Vaccine Aged Out No gian neptali eligible based on patient's age to complete this topic Pneumococcal Vaccine: Pediat rics (0 to 5 Years) and At-Risk Patients (6 to 49) Years Aged Out No longer eligi ble based on patient's age to complete this topic RSV under 20 months Aged Out No longe r eligible based on patient's age to complete this topic Rotavirus Vaccines Aged Out No longer eligible based on patient's age to complete this topic Insurance HSN FULL
== END 2025-03-06 13:07 | disposition home or self-care (01) ==
LOC: HO.NEURO 13:06
PROVIDERS: PCP Internal Medicine Geriatric Medicine
DX: R20.0 Anesthesia of skin (principal); R20.2 Paresthesia of skin; R94.131 Abnormal electromyogram [EMG]
CPT/HCPCS: 95886; 95909

== ENCOUNTER → 2025-03-06 13:10 | Outpatient (BNV) | payer OTHER, SELFPAY | PROVIDERS: PCP Internal Medicine Geriatric Medicine; Visit Provider Physical Medicine & Rehabilitation | DX: G56.02 Carpal tunnel syndrome, left upper limb (principal) | CPT/HCPCS: 95886; 95909 ==

== ENCOUNTER 2025-04-19 08:26 | Outpatient (AMB) | payer OTHER, SELFPAY ==
--- OUTSIDE RECORDS SUMMARY | 2025-04-16 13:15 | XMS_ITS | Encounter Summary ---
Author Organization [employer] Address [address] [place] [address] 7 [place] [address] Care Team Providers Care Catering Cook Name Role Phone Corey Luevano MD Primary Care Provider Reason for Referral * Consultation (Routine) - Closed Specialty Diagnoses / Procedures Referred By Abigail kiran Referred To Contact Genetics Diagnoses Family history of breast cancer Corey Luevano MD [address] [place] [address] Phone: tel: fax: [address] Phone: tel: fax: Referral ID Status Reason Start Date Expiration Date V isits Requested Visits Authorized [id number] Closed Specialty Services Required 04/16/2025 04/16/2026 1 1 * Consultation (Routine) - Authorized Specialty Diagnoses / Procedures Referred By Abigail kiran Referred To Contact Midwifery Diagnoses Bilateral ovarian cysts Screening for cervical cancer Corey Luevano MD [address] [place] [address] Phone: tel: fax: Ericka Gill CNM [address] [place] [address] Phone: tel: fax: Referral ID Status Reason Start Date Expiration Date Visits Requested Visits Authorized [id number] Authorized Consult and Treat 04/16/2025 04/16/2026 1 1 * Imaging (Routine) - Authorized Specialty Diagnoses / Procedures Referred By Contac t Referred To Contact Radiology Diagnoses Encounter for screening for malignant neoplasm of breast, unspecified screening modality Procedures BI Mammogram Screening Tomosynthesis Bilateral Corey Luevano MD [address] [place] [address] Phone: tel: fax: [address] Phone: tel: fax: Referral ID Status Reason Start Date Expiration Date V isits Requested Visits Authorized [id number] Authorized 04/16/2025 04/16/2026 1 1 Reason for Visit * Reason Comments Initial visit Encounter Details Date Type Department Care Team (Latest Contact Info) Description 04/16/2025 1:15 PM EDT Office Visit [facility] MEDICINE [address] [place] [id number] Corey Luevano MD [address] [place] [phone] Uncomplicated asthma, unspecified asthma severity, unspecified whether persistent (Primary Dx); Allergic rhinitis, unspecified seasonality, unspecified trigger; Bilateral ovarian cysts; History of abnormal cervical Pap smear; Screening for cervical cancer; Family history of breast cancer; Encounter for screening for malignant neoplasm of breast, unspecified screening modality; Encounter for immunization; Heartburn; Screening for cholesterol level; Screening for diabetes mellitus Social History Tobacco Use Types Packs/Day Years Used Date Smoking Tobacco: Never Smokeless Tobacco: Never Alcohol Use Standard Drinks/Week Comments Never 0 (1 standard drink = 0.6 oz pur e alcohol) Depression Answer Date Recorded Patient Health Questionnaire-9 Score 0 04/16/2025 Patient Health Questionnaire-9 Score 0 04/16/2025 Last PHQ-9: Questionnaire Data Not on file 1 Depression Answer Date Recorded Patient Health Questionnaire-2 Score 0 04/16/2025 Comments No Sex and Gender Information Value Date Recorded Sex Assigned at Female 04/19/2022 10:36 AM EDT Legal Sex Female 10:36 AM EDT Gender Identity Female 03/20/2025 8:12 AM EDT Sexual Orientation Straight 03/20/2025 8: 12 AM EDT documented as of this encounter Last Filed Vital Signs Vital Sign Reading Time Taken Comments Blood Pressure 122/78 04/16/2025 1:14 PM EDT Pulse 68 04/16/2025 1:14 PM EDT Temperature 36.5 C (97.7 F) 04/16/2025 1:14 PM EDT Respiratory Rate 12 04/16/2025 1:14 PM EDT Oxygen Saturation 97% 04/16/2025 1:14 PM EDT Inhaled Oxygen Concentration - - Weight 68.7 kg (151 lb 6.4 oz) 04/16/2025 1:14 P M EDT Height 157.5 cm (5' 2 ) 04/16/2025 1:14 PM EDT Body Mass Index 27.69 04/16/2025 1:14 PM EDT documented in this encounter Functional Status * Over the past 2 weeks, how often have you been bothered by any of the following problems? Question Answer Date of Assessment Author Patient Health Questionnaire -2 Score 0 04/16/2025 1:16 PM EDT Sanjeev Torres MA * Little interest or pleasure in doing things Answer Date of Assessment Author Not at all 04/16/2025 1:16 PM EDT Melissa Torres MA * Feeling down, depressed, or hopeless Answer Date of Assessment Author Not at all 04/16/2025 1:16 PM EDT Melissa Torres MA * Trouble falling or staying asleep, or sleeping too much Answer Date of Assessment Author Not at all 04/16/2025 1:16 PM EDT Melissa Torres MA * Feeling tired or having little energy Answer Date of Assessment Author Not at all 04/16/2025 1:16 PM EDT Melissa Torres MA * Poor appetite or overeating Answer Date of Assessment Author Not at all 04/16/2025 1:16 PM EDT Melissa Torres MA * Feeling bad about yourself - or that you are a failure or have let yourself or your family down Answer Date of Assessment Author Not at all 04/16/2025 1:16 PM EDT Melissa Torres MA * Trouble concentrating on things, such as reading the newspaper or watching television Answer Date of Assessment Author Not at all 04/16/2025 1:16 PM EDT Melissa Torres MA * Moving or speaking so slowly that other people could have noticed? Or the opposite - being so fidgety or restless that you have been moving around a lot more than usual. Answer Date of Assessment Author Not at all 04/16/2025 1:16 PM EDT Melissa Torres MA * Thoughts that you would be better off or hurting yourself in some way Answer Date of Assessment Author Not at all 04/16/2025 1:16 PM EDT Melissa Torres MA * Patient Health Questionnaire-9 Score Answer Date of Assessment Author 0 04/16/2025 1:16 PM BRYCET Melissa Torres MA * Over the last 2 weeks, how often have you been bothered by any of the following problems? Question Answer Date of Assessment Author Feeling nervous, anxious, or on edge 3 04/16/2025 1:16 PM EDT Sanjeev Torres MA Not being able to stop or control worrying 3 04/16/2025 1:16 PM BRYCET Sanjeev Torres MA Worrying too much about different things 3 04/16/2025 1:16 PM BRYCET Sanjeev Torres MA Trouble relaxing 3 04/16/2025 1:16 PM EDT Melissa Velasquez MA Being so restless that it is hard to sit still 3 04/16/2025 1:16 PM BRYCET Sanjeev Torres MA Becoming easily annoyed or irritable 3 04/16/2025 1:16 PM BRYCET Sanjeev Torres MA Feeling afraid as if somethi ng awful might happen 0 04/16/2025 1:16 PM Sanjeev Haas MA CLIFF-7 Total Score 18 04/16/2025 1:16 PM EDT Melissa Torres MA documented as of this encounter Progress Notes * Corey Luevano MD - 04/16/2025 1:15 PM EDT Subjective Patient ID: Camelia Eduardo is a 40 y.o. female who presents for Initial visit. Patient comes today for the first time to see me. She is accompanied by her that is also mypatient. She has not seen a primary care provider in more than 5 years. She has a personal history of ovarian cysts, she has chronic pelvic pain, she uses Motrin regularly for pelvic pain, she suffers with daily heartburn, she has history of asthma treated only with albuterol that she uses several times a week (she has been getting albuterol solution from family members, no ER visits for asthma, no hospitalizations or intubations), she does not smoke cigarettes but she vapes daily, she does notdrink alcohol or use illicit drugs. Review of Systems Constitutional: Negative for chills and fever. HENT: Negative for sore throat. Respiratory: Negative for cough, shortness of breath and wheezing. Cardiovascular: Negative for chest pain, palpitations and leg swelling. Gastrointestinal: Negative for abdominal pain. Genitourinary: Negative for vaginal bleeding and vaginal discharge. See HPI Objective Vitals: 04/16/25 1314 BP: 122/78 BP Location: Left arm Patient Position: Sitting BP Cuff Size: Adult Pulse: 68 Resp: 12 Temp: 97.7 ??F (36.5 ??C) TempSrc: Temporal SpO2: 97% Weight: 151 lb 6.4 oz (68.7 kg) Height: 5' 2 (1.575 m) Physical Exam Constitutional: Appearance: Normal appearance. Cardiovascular: Rate and Rhythm: Normal rate and regular rhythm. Heart sounds: No murmur heard. No gallop. Pulmonary: Effort: Pulmonary effort is normal. No respiratory distress. Breath sounds: Normal breath sounds. No wheezing. Musculoskeletal: Right lower leg: No edema. Left lower leg: No edema. Neurological: Mental Status: She is alert. Assessment/Plan Diagnoses and all orders for this visit: Uncomplicated asthma, unspecified asthma severity, unspecified whether persistent Comments: I recommended to stop vaping, Arnuity daily for asthma prevention, continue rescue albuterol Allergic rhinitis, unspecified seasonality, unspecified trigger Comments: I recommended daily use of Flonase Bilateral ovarian cysts Comments: Referral to gynecology Orders: - Referral to Gynecology (Ericka); Future History of abnormal cervical Pap smear Comments: Referral to gynecology for Pap smear Screening for cervical cancer - Referral to Gynecology (Ericka); Future Family history of breast cancer Comments: The patient maternal grandmother, 2 maternal aunts had breast cancer, will refer to genetics. Referral to screening mammogram. Orders: - Referral to Genetics; Future Encounter for screening for malignant neoplasm of breast, unspecified screening modality - BI Mammogram Screening Tomosynthesis Bilateral; Future Encounter for immunization Comments: Flu vaccination and Tdap today. Orders: - FLU VACCINE TRIVALENT [id number] (Fluarix) 19 yrs + Heartburn Comments: I will discontinue Motrin. I recommended Celebrex as needed. Check CBC. Omeprazole 40 mg daily. Orders: - CBC auto differential; Future Screening for cholesterol level Comments: Check fasting lipids below. Orders: - Lipid Panel, Standard; Future Screening for diabetes mellitus Comments: Check fasting blood work listed below. Orders: - Comprehensive Metabolic Panel; Future Other orders - Tdap vaccine greater than or equal to 7 years old IM - celecoxib (CeleBREX) 200 MG capsule; Take 1 capsule (200 mg) by mouth if needed each day for mildpain. - omeprazole (PriLOSEC) [address] capsule; Take 1 capsule (40 mg) by mouth before breakfast. Do not crush or chew. - fluticasone (Flonase) 50 MCG/ACT nasal spray; Administer 2 sprays into each nostril Once per day. Shake gently. Before first use, prime pump. After use, clean tip and replace cap. - albuterol 108 (90 Base) MCG/ACT inhaler; Inhale 2 puffs every 6 (six) hours if needed for wheezing. - fluticasone furoate (Arnuity Ellipta) 100 MCG/ACT inhaler; Inhale 1 puff Once per day. Rinse mouth with water after use to reduce aftertaste and incidence of candidiasis. Do not swallow. - albuterol (2.5 MG/3ML) 0.083% nebulizer solution; Take 3 mL (2.5 mg) by nebulization every 4 (four) hours if needed for wheezing. Future Appointments Date Time Provider Department Center 04/18/2025 10:00 AM Chuck Pastrana [facility] 09/24/2025 8:00 AM Kong Vázquez [facility] documented in this encounter Plan of Treatment Upcoming Encounters Date Type Department Care Team (Late st Contact Info) Description 05/08/2025 11:15 AM EST Procedure Visit [facility] MEDICINE [address] [place] [address] Ericka Gill, CNM [address] [place] [address] 05/09/2025 8:00 AM EST Office Visit [facility] ADULT DENTAL [address] [place], [place] [phone] Victoriano Chuck [address] [place] [address] 09/24/2025 8:00 AM EDT Office Visit [facility] [address] [place] [address] Kong Vázquez Scheduled Orders Name Type Priority Associated Diagnoses Orde r Schedule BI Mammogram Screening Tomosynthesis Bilateral Imaging Routine Encounter for screening for malignant neoplasm of breast, unspecified screening modality Expected: 04/16/2025, Expires: 06/16/2026 CBC auto differential Lab Routine Heartburn Expected: 04/16/2025 (Approximate), Expires: 04/16/2026 Comprehensive Metabolic Panel Lab Routine Screening for diabetes mellitus Expected: 04/16/2025 (Approximate), Expires: 04/16/2026 Lipid Panel, Standard Lab Routine Screening for cholesterol level Expected: 04/16/2025 (Approximate), Expires: 04/16/2026 Scheduled Referrals Name Type Priority Associated Diagnoses Order Schedule Referral to Gynecology (Ericka) Outpatient Referral Routine Bilateral ovarian cysts Screening for cervical cancer Expected: 04/16/2025 (Approximate), Expires: 04/16/2026 Referral to Genetics Outpatient Referral Routine Family history of breast cancer Expected: 04/16/2025 (Approximate), Expires: 04/16/2026 documented as of this encounter Visit Diagnoses Diagnosis Uncomplicated asthma, unspecified asthma severity, unspecified whether persistent- Primary Allergic rhinitis, unspecified seasonality, unspecified trigger Bilateral ovarian cysts Other and unspecified ovarian cyst History of abnormal cervical Pap smear Encounter for screening for malignant neoplasm of breast, unspecified screening modality Family history of breast cancer Family history of malignant neoplasm of breast Heartburn documented in this encounter Additional Health Concerns Assessment Noted Time PHQ-9 Depression Total Score: 0 04/16/20 1:16 PM EDT documented as of this encounter Care Teams Catering Cook Relationship Specialty Start Date End Date Name, MD Corey [address] [place] [address] PCP - General Internal Medicine 04/16/25 documented as of this encounter
--- OUTSIDE RECORDS SUMMARY | 2025-04-18 10:00 | XMS_ITS | Encounter Summary ---
Author Organization [employer] Address [address] [place] [address] [address], [place] [address] Care Team Providers Care Draw Bench Operator Name Role Phone Name, Corey NEVAREZ Primary Care Provider [phone] Reason for Visit * Reason Comments Filling Post and core #10 Encounter Details Date Type Department Care Team ([facility] st Contact Info) Description 04/18/2025 10:00 AM EDT Office Visit [facility] ADULT DENTAL [address] [place] [address] Chuck Psatrana [address] [place] [address] Social History Tobacco Use Types Packs/Day Years [...] y.o. female. Time Out: Date: 04/18/2025 Location: [facility] Tooth: #10 Procedure: Post & Core Verified the above with patient, assistant coach, and provider. Confirmed via patient's chart, intraorally and by radiographs. Handmade Tile Artist: not applicable Prefab post and core done [...] - No local anesthetics used - Temporary mandaeism removed. - Tooth length - 21 mm - Post space made- 15 mm - Alvarez-percha removed using Aguilar Zanoni - Para-post reamer used size: 4 - Para-post size (brand/ size) used: 4 - 1st PA - of tooth # 10 to confirm the post size and length. - Irrigation done using Sodium Hypochlorite - Post space dried using paper points - modeling agent applied - Post cemented using RelyX. - Core placed using RelyX - 2nd PA - of tooth # 10 for post op confirmation. - Core smoothed and polished. - Quaker polished Patient satisfied, left in stable condition [place]: [place] prep Provider: Dr. Chuck Pastrana Maintenance Parts Technician: Day Eubanks Supervising dentist: Dr. Landaverde documented in this encounter Plan of Treatment Upcoming Encounters Date Type Department Care Team (Late st Contact Info) Description 05/08/2025 11:15 AM EST Procedure Visit [facility] MEDICINE [address] [place] [address] Ericka Gill CNM [address] [place] [address] 05/09/2025 8:00 AM EST Office Visit [facility] ADULT DENTAL [address] [place], [place] [phone] Victoriano, Chuck [address] [place] [address] 09/24/2025 8:00 AM EDT Office Visit [facility] ADULT DENTAL [address] [place], [place] [phone] Kong Vázquez Scheduled Orders Name Type Priority [...] documented as of this encounter Care Teams Draw Bench Operator Relationship Specialty Start Date End Date Name, MD Corey [address] [place] [address] PCP - General Internal Medicine 04/16/25 documented as of this encounter
--- NOTE | 2025-04-19 08:31 | A.OFFVIS_ITS ---
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 Patient complains of let middle, ring, and small finger numbness and tingling with associated sleep disturbance. 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 She also complains of left ring finger locking. Has tried braces and home exercises without relief. Denies any prior injuries or surgeries to the left hand. Patient has a history of Right Carpal Tunnel Release, ~2018 at [facility]. Patient reports her symptoms returned within the year, now more constant than before, primarily on the right middle, ring, and small fingers. Patient would like EMG of the right hand. 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 IMPRESSION 03/06/25: 1. This is an abnormal study. 2. There is electrodiagnostic evidence for left moderate-severe median neuropathy at the wrist, consistent with carpal tunnel syndrome. 3. There is no electrodiagnostic evidence for ulnar neuropathy, brachial plexopathy, or cervical radiculopathy. 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 Patient complains of let middle, ring, and small finger numbness and tingling with associated sleep disturbance. 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 She also complains of left ring finger locking. Has tried braces and home exercises without relief. Denies any prior injuries or surgeries to the left hand. Patient has a history of Right Carpal Tunnel Release, ~2018 at [facility]. Patient reports her symptoms returned within the year, now more constant than before, primarily on the right middle, ring, and small fingers. Patient would like EMG of the right hand. 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 IMPRESSION 03/06/25: 1. This is an abnormal study. 2. There is electrodiagnostic evidence for left moderate-severe median neuropathy at the wrist, consistent with carpal tunnel syndrome. 3. There is no electrodiagnostic evidence for ulnar neuropathy, brachial plexopathy, or cervical radiculopathy. [facility] Medical History (Updated 04/19/25 @ 12:15 by EDUARDA Joseph) Asthma Surgical History History of carpal tunnel release Social History (Updated 04/19/25 @ 08:43 by JESSICA Melara) Alcohol intake: current Alcohol intake frequency: holidays/special occasions only Patient Tobacco Use Status: Former Tobacco user e-Cigarette/Vaping Use: Currently Using Current occupational status: employed Current occupation: rt handed, [employer] Review of Systems Const All systems reviewed & are unremarkable except as noted in HPI and below Physical Exam Vital Signs: BMI result Body Mass Index 26.7 Extrem Other: Neuro: Diminished sensation in the median nerve distribution of the left hand in the office today Normal sensation of the tips of all other digits of the left hand No thenar or intrinsic wasting. Good APB muscle firing and good finger cross. Vascular: Capillary refill brisk. ROM: Patient can make a fist and extend all their digits. Skin: No lacerations or abrasions noted. General: No ecchymosis. No erythema or evidence of infection. [] Assessment & Plan Assessment & Plan (1) Left carpal tunnel syndrome: Code(s): G56.02 - Carpal tunnel syndrome, left upper limb Category: Medical Plan 1. Left carpal tunnel syndrome Symptoms constant, daily, worse at night I educated the patient about the condition. I discussed both operative and nonoperative treatment options. The patient would like to proceed with surgery. The risks and benefits of operative treatment were discussed with the patient and the patient wishes to proceed with surgery. These risks include, but are not limited to, risk of damage to blood vessels, nerves, tendons, infection, recurrence, incomplete relief of preoperative symptoms, persistent pain, possible need for further surgery, and the risks associated with regional blocks and/or anesthesia. Plan is to take the patient to the operating room at some point in the next few weeks for the following procedures: 1. Left carpal tunnel release under local All of the preoperative paperwork including the consent was discussed today. All of the patient's questions were answered in the clinic today. The patient understands that they will be in contact with our surgical services tech to discuss scheduling their procedure. Patient denies diabetes, blood thinners, asthma, heart issues, lung issues, kidney issues, or current smoking. Medications: Discontinued ketorolac Patient received Toradol in the emergency room. Discontinued Reason: Patient Completed Course 10 mg PO Q6H 5 days PRN 20 tabs 0RF pain hydrocortisone acetate (Anusol-HC) Discontinued Reason: Patient no longer taking 25 mg AR BID 24 ea 0RF ibuprofen Discontinued Reason: Patient Completed Course 600 mg PO Q6H PRN 20 tabs 0RF pain Coding Level of Care Code New Pt Level 4 (04648) Diagnoses Left carpal tunnel syndrome G56.02
[2025-04-19 08:32] VITALS: BMI 26.7
--- OUTSIDE RECORDS SUMMARY | 2025-04-19 08:40 | XMS_ITS | Clinical Summary ---
Author Organization [facility] Address [address] [place] [address] Care Team Providers Care Locomotive Engineer Name Role Phone Dorys Alfaro PA-C Primary [...] Done Comments Anxiety Screening 1983 HPV Screening (self-collect) 1983 HPV Screening 1983 Pap + HPV [...] 09/01/2018, 05/06 Depression Annual Screen 06/20/2024 09/01/2018 [id number] ( season) 2025 05/20/2021, 10/28/2020, 10/07/2020 Hepatitis C Screening Completed 05/06/2016 HIV Screening Completed 05/29/2019 Syphilis Screening Discontinued 05/29/2019 Imm-Influenza Discontinued 06/03/2020 Cervical Ablation/Cold-Knife Conization Discontinued Cervical Cryotherapy Discontinued Colposcopy Discontinued Excision/Leep Discontinued HPV Genotyping Discontinued Vaginal [...] 3:51 PM EST) TREPONEMAL AB NEGATIVE NEGATIVE [facility] 05/29/2019 3:51 PM EST 05/29/2019 3:57 PM EST Narrative [facility] 05/29/2019 7:27 PM EST [employer], [place] [address] Hunting Guide - Celestina Moore MD PT ID [id number] ORD# [id number] us Dorys Alfaro PA-C LAB - BLOOD DRAW Final [place] [address], * HIV-1 & HIV-2 ANTIBODIES (05/29/2019 3:51 PM EST) [facility] HIV 1 AND 2 ANTIBODY SCREEN NEGATIVE NEGATIVE [facility] Comment: This assay is a 4th generation [...] PM EST 05/29/2019 3:57 PM EST Narrative [facility] - 05/29/2019 7:56 PM EST [facility], [place] [address] Hunting Guide - Celestina Moore MD PT ID [id number] ORD# [id number] us Dorys Alfaro PA-C LAB - BLOOD DRAW Final Resul t Performing Organization Address City/State/[facility] [place] [address], * (ABNORMAL) COMPRE METAB PANEL (05/29/2019 3:51 PM EST) [facility] GLUCOSE 81 70 - 100 mg/dL [facility] Comment:Reference range appl icable to fasting specimens only BUN 16 5 - 25 mg/dL [facility] CREAT 0.78 0.5 - 1.1 mg/dL [facility] GLOMERULAR FILTRATION RATE > 60 [facility] Comment: If patient is -Libyan, multiply result by 1.21 Chronic Kidney Disease: < 60 ml/min/1.73 square meters Kidney Failure: < 15 ml/min/1.73 square meters SODIUM 136 135 - 145 mEq/L [facility] POTASSIUM 4.2 3.5 - 5.5 mmol/L [facility] CHLORIDE 104 96 - 110 mmol/L [facility] CO2 26 21 - 32 mmol/L [facility] ANION GAP 6 3 - 11 [facility] CALCIUM 10.1 8.5 - 10.5 mg/dL [facility] ALBUMIN 4.1 3.2 - 5.0 G/dL [facility] SGOT 37 10 - 42 U/L [facility] SGPT 105(H) 10 - 60 U/L [facility] TOTAL PROTEIN 7.6 6.0 - 8.0 G/dL [facility] BILI, TOTAL 0.4 0.0 - 1.4 mg/dL [facility] ALK PHOS 137(H) 42 - 121 U/L [facility] Blood specimen (specimen) Blood / Unknown 05/29/2019 3:51 PM EST 05/29/2019 3:57 PM EST Narrative [facility] - 05/29/2019 7:09 PM EST [facility], [place] [address] Hunting Guide - Celestina Moore MD PT ID [id number] ORD# [id number] us Dorys Alfaro PA-C LAB - BLOOD DRAW Edited Resu lt - Final Performing Organization Address City/State/[facility] [place] [address], * (ABNORMAL) LIPID PANEL (09/01/2018 10:05 AM EDT) CHOLESTEROL 175 0 - 200 mg/dL [facility] TRIGLYCERIDES 55 0 - 150 mg/dL [facility] HDL CHOLESTEROL 61 >40 mg/dL [facility] LDL CALCULATED 103(H) 0 - 100 mg/dL [facility] TC-HDLC RATIO 2.9 0 - 4.4 mg/dL [facility] Blood specimen (specimen) Blood / Unknown 09/01/2018 10:05 AM EDT 09/01/2018 10:26 AM EDT Narrative [facility] - 09/01/2018 12:13 PM EDT [employer], a member of [address] [address] Hunting Guide - Cyndi Lang MD PT ID [id number] ORD# [id number] Dorys Alfaro PA-C LAB - BLOOD DRAW Final Resul t Performing Organization Address City/[facility]/ZIP Co de Phone Number [facility] [address] [place] [address], * (ABNORMAL) PAP, LIQUID BASED (08/22/2017 4:06 PM EST) PAP abnormal NORMAL - ABNORMAL [facility] Comment:LSIL, high risk HPV positive Specimen from uterine cervix (specimen) Cervix uteri structure / Unknown 08/22/2017 4:06 PM EST Dorys Alfaro PA-C LAB - PATHOLOGY AND CYTOLOGY AMBULATORY Final Result Performing Organization Address [facility] de Phone Number [facility] [address] [place] [address], * HEPATITIS A,B,C PANEL (05/06/2016 11:18 AM EST) HEPATITIS B SURFACE ANTIBODY NEGATIVE NEGATIVE [facility] SURFACE ANTIGEN NEGATIVE NEGATIVE [facility] C VIRUS DIAGNOSTIC NEGATIVE NEGATIVE [facility] HEPATITIS B CORE ANTIBODY NEGATIVE NEGATIVE [facility] A ANTIBODY TOTAL NEGATIVE NEGATIVE [facility] Blood specimen (specimen) Blood / Unknown 05/06/2016 11:18 AM EST 05/06/2016 11:49 AM EST Narrative [facility] 05/06/2016 4:51 PM EST [employer] [address] [place] [address] PT ID [id number] ORD# [id number] oDrys Alfaro PA-C LAB - BLOOD DRAW Edited Resu lt - Final Performing Organization Address City/[facility] Co de Phone Number [facility] [address] [phone] from Last 3 Months or Most Recently Relevant to Health Maintenance Insurance [facility] DENTAL [facility] NET DENTAL [employer] Care Teams Locomotive Engineer Relationship Specialty Start Date End Date Dorys Alfaro PA-C [address] [place] [phone] PCP - General Internal Medicine 02/27/16
--- OUTSIDE RECORDS SUMMARY | 2025-04-19 08:40 | XMS_ITS | Encounter Summary ---
Author Organization [email or web address] Address [address] [facility] [address] [place] [address] Care Team Providers Care Deburrer Machine Name Role Phone Name, Corey NEVAREZ Primary Care Provider [phone] Encounter Details Date Type Department Care Team (Latest Contact Info) Description 04/16/2025 Travel Social History Tobacco Use Types Packs/Day Years [...] AM EDT documented as of this encounter Functional Status * Over the [...] Author Not at all 04/16/2025 1:16 PM BRYCET Melissa Torres MA * Trouble concentrating on things, such as reading the newspaper or watching television Answer Date of Assessment Author Not at all 04/16/2025 1:16 PM Melissa Haas MA * Moving or speaking so slowly that other people could have noticed? Or the opposite - being so fidgety or restless that you have been moving around a lot more than usual. Answer Date of Assessment Author Not at all 04/16/2025 1:16 PM Melissa Haas MA * Thoughts that you would be better off or hurting yourself in some way Answer Date of Assessment Author Not at all 04/16/2025 1:16 PM Melissa Haas MA * Patient Health Questionnaire-9 Score Answer Date of Assessment Author 0 04/16/2025 1:16 PM Melissa Haas MA * Over the last 2 weeks, how often have you been bothered by any of the following problems? Question Answer Date of Assessment Author Feeling nervous, anxious, or on edge 3 04/16/2025 1:16 PM Sanjeev Haas MA Not being able to stop or control worrying 3 04/16/2025 1:16 PM Sanjeev Haas MA Worrying too much about different things 3 04/16/2025 1:16 PM Sanjeev Haas MA Trouble relaxing 3 04/16/2025 1:16 PM EDT I Melissa luis MA Being so restless that it is hard to sit still 3 04/16/2025 1:16 PM EDT Sanjeev Torres MA Becoming easily annoyed or irritable 3 04/16/2025 1:16 PM EDT Sanjeev Torres MA Feeling afraid as if somethi ng awful might happen 0 04/16/2025 1:16 PM EDT Sanjeev Torres MA CLIFF-7 Total Score 18 04/16/2025 1:16 PM EDT Melissa Torres MA documented as of this encounter Plan of Treatment Upcoming Encounters Date Type Department Care Team (Late st Contact Info) Description 05/08/2025 11:15 AM EST Procedure Visit [facility] MED[facility] [address] [place] [address] Ericka Gill CNM [address] [place] [address] 05/09/2025 8:00 AM EST Office Visit [facility] ADULT DENTAL [address] [place] [address] Chuck Pastrana [address] [place] [address] 09/24/2025 8:00 AM EDT Office Visit [facility] [address] [place] [address] Kong Vázquez documented as of this encounter Visit Diagnoses Not on filedocumented in this encounter Additional Health Concerns Assessment Noted Time PHQ-9 Depression Total Score: 0 04/16/20 1:16 PM EDT documented as of this encounter Care Teams Deburrer Machine Relationship Specialty Start Date End Date Name, MD Corey [address] [place] [address] PCP - General Internal Medicine 04/16/25 documented as of this encounter
--- OUTSIDE RECORDS SUMMARY | 2025-04-19 08:40 | XMS_ITS | Clinical Summary ---
Author Organization [employer] Address [address] [facility] [address] [place] [address] Care Team Providers Care Debeaker Name Role Phone Name, Corey NEVAREZ Primary Care Provider [phone] Allergies No known active allergies Medications celecoxib (CeleBREX) 200 MG capsule Take 1 capsule (200 mg) by mouth if needed each day for mild pain. 30 capsule 3 5 Active omeprazole (PriLOSEC) [address] capsule Take 1 capsule (40 mg) by mouth before breakfast. Do not crush or chew. 30 capsule 11 5 Active fluticasone (Flonase) 50 MCG/ACT nasal spray Administer 2 sprays into each nostril Once per day. Shake gently. Before first use, prime pump. After use, clean tip and replace cap. 16 g 2 5 Active albuterol 108 (90 Base) MCG/ACT inhaler Inhale 2 puffs every 6 (six) hours if needed for wheezing. 18 g 11 5 Active fluticasone furoate (Arnuity Ellipta) 100 MCG/ACT inhaler Inhale 1 puff Once per day. Rinse mouth with water after use to reduce aftertaste and incidence of candidiasis. Do not swallow. 1 each 5 Active albuterol (2.5 MG/3ML) 0.083% nebulizer solution Take 3 mL (2.5 mg) by nebulization every 4 (four) hours if needed for wheezing. 75 mL 3 5 Active ibuprofen 600 MG tablet Take 1 tablet (600 mg) by mouth every 6 (six) hours if needed for mild pain for up to 20 doses. 20 tablet 025 Discontin ued(Side effects) Active Problems Problem Noted Date Diagnosed Date History of abnormal cervical Pap smear Allergic rhinitis 04/16/2025 Encounter for immunization 04/16/2025 Carpal tunnel syndrome 04/16/2025 Heartburn 04/16/2025 Family history of breast cancer 04/16/2025 Overweight 09/01/2018 Low grade squamous intraepit h lesion on cytologic smear cervix (lgsil) 08/06/2016 H. pylori infection 07/22/2016 Bilateral ovarian cysts 05/06/2016 Functional constipation 05/06/2016 Gastritis 05/06/2016 Liver hemangioma 05/06/2016 ALEJANDRO (nonalcoholic steatohepatitis) 05/06/2016 S/P tubal ligation 05/06/2016 Encounters Date Type Department Care Team Description 04/18/2025 10:00 AM EDT Office Visit [facility] ADULT DENTAL [address] [place] [address] Chuck Pastrana 04/16/2025 1:15 PM EDT Office Visit [facility] MEDICINE [address] [place] [id number] Corey Luevano MD Uncomplicated asthma, unspecified asthma severity, unspecified whether persistent (Primary Dx); Allergic rhinitis, unspecified seasonality, unspecified trigger; Bilateral ovarian cysts; History of abnormal cervical Pap smear; Screening for cervical cancer; Family history of breast cancer; Encounter for screening for malignant neoplasm of breast, unspecified screening modality; Encounter for immunization; Heartburn; Screening for cholesterol level; Screening for diabetes mellitus 04/16/2025 Travel 04/15/2025 Telephone [facility] MED[facility] [address] [place] [address] Corey Luevano MD Chart Prep 04/09/2025 Patient Outreach [facility] [address] [place] [address] Corey Luevano MD Pre-visit Planning ([facility] unable to reach [facility] ) 03/26/2025 1:00 PM EDT Office Visit [facility] ADULT DENTAL [address] [place] [address] Chuck Pastrana 03/25/2025 11:00 AM EDT Office Visit [facility] ADULT DENTAL [address] [place] [address] Chuck Pastrana 03/22/2025 Travel 03/21/2025 8:00 AM EDT Office Visit [facility] ADULT DENTAL [address] [place] [address] Raheem, Faviola 02/12/2025 Travel 02/06/2025 Travel from Last 3 Months Immunizations Immunization Administration Dates Next Due Hep A / Hep B 09/01/2018 Influenza, seasonal, injectable, preservative fr ee 04/16/2025 Tdap 04/16/2025 Family History Medical History Relation Name Comments Diabetes type II Father Heart attack Father Hypertension Father Breast cancer Maternal Grandfather Diabetes Mother Hyperlipidemia Mother Hypertension Mother Breast cancer Mother's Sister 1 Breast cancer Mother's Sister 2 Relation Name Status Comments Father Maternal Grandfather Mother Alive Mother's Sister 1 Alive Mother's Sister 2 Alive Social History Tobacco Use Types Packs/Day Years [...] Orientation Straight 03/20/2025 8: 12 AM EDT Last Filed Vital Signs Vital Sign Reading Time Taken Comments Blood Pressure 115/72 04/18/2025 10:09 AM EDT Pulse 68 04/16/2025 1:14 PM EDT [...] Mass Index 27.69 04/16/2025 1:14 PM EDT Plan of Treatment Upcoming Encounters Date Type Department Care Team (Late st Contact Info) Description 05/08/2025 11:15 AM EST Procedure Visit [facility] MED[facility] [address] [place] [address] Ericka Gill, CNM [address] [place] [address] 05/09/2025 8:00 AM EST Office Visit [facility] ADULT DENTAL [address] [place], [place] [phone] Jt Pastranaio [address] [place], [place] [phone] 09/24/2025 8:00 AM EDT Office Visit [facility] ADULT DENTAL [address] [place], [place] [phone] Kong Vázquez Health Maintenance Due Date Last Done Comments SDOH Screening 1983 Family Planning (PISQ) 1998 HPV Vaccines (1 - 3-dose series) 1998 Hepatitis C Screening 2001 Pneumococcal Vaccine: Pediatrics (0 to 5 Years) and At-Risk Patients (6 to 49) Years (1 of 2 - PCV) 2002 Pap Smear 01/27/2004 Cervical Cancer Screening 2013 HPV/Cotest 2013 Hepatitis A Vaccines (2 of 3 - Hep A Twinrix risk 3-dose series) 09/29/2018 09/01/2018 Hepatitis B Vaccines (2 of 3 - Hep B Twinrix 3-dose series) 09/29/2018 09/01/2018 Dental X-Ray: Full Mouth 08/17/2022 08/16/2019 Mammogram 2023 COVID-19 Vaccine (4 - 2024-2 6 season) 2025 05/20/2021, 10/28/2020, 10/07/2020 Dental Oral Exam 09/20/2025 03/21/2025, 08/16/2019 Dental Prophylaxis 09/20/2025 03/21/2025 Dental X-Ray: Bitewings 03/22/2026 03/21/20 25, 08/16/2019 Alcohol/Substance Use Screening 04/16/2026 04/16/2025 Depression Screening 04/16/2026 04/16/2025, 04/16/2025 Disability Screening 04/16/2026 04/16/2025 Tobacco Screening 04/18/2026 04/18/2025 Zoster Vaccines (1 of 2) 2033 DTaP/Tdap/Td Vaccines (2 - T d or Tdap) 04/16/2035 04/16/2025 RSV Patients and Patients Aged 60 years or older (1 - 1-dose 75+ series) 2058 HIV Screening Completed 05/29/2019 Influenza Vaccine Completed 04/16/2025, 06/03/2020 HIB Vaccines Aged Out No longer eligi [...] on patient's age to complete this topic Procedures Procedure Name Priority Date/Time Associated Diagnosis Comments CASE PRESENTATION, DETAILED AND EXTENSIVE TREATMENT PLANNING Routine 04/18/2025 10:00 AM EDT 10 PREFABRICATED POST AND CORE IN ADDITION TO CROWN Routine 04/18/2025 10:00 AM EDT CASE PRESENTATION, DETAILED AND EXTENSIVE TREATMENT PLANNING Routine 03/26/2025 1:00 PM EDT 10 LIMITED ORAL EVALUATION - PROBLEM FOCUSED Routine 03/26/2025 1:00 PM EDT CASE PRESENTATION, DETAILED AND EXTENSIVE TREATMENT PLANNING Routine 03/25/2025 11:00 AM EDT 10 ENDODONTIC THERAPY, ANTERIOR TOOTH Routine 03/25/2025 11:00 AM EDT COMPREHENSIVE PERIODONTAL EVALUATION - NEW OR ESTABLISHED PATIENT Routine 03/21/2025 8:00 AM EDT PERIODIC ORAL EVALUATION - ESTABLISHED PATIENT Routine 03/21/2025 8:00 AM EDT CASE PRESENTATION, DETAILED AND EXTENSIVE TREATMENT PLANNING Routine 03/21/2025 8:00 AM EDT INTRAORAL - PERIAPICAL EACH ADDITIONAL RADIOGRAPHIC IMAGE Routine 03/21/2025 8:00 AM EDT INTRAORAL - PERIAPICAL EACH ADDITIONAL RADIOGRAPHIC IMAGE Routine 03/21/2025 8:00 AM EDT INTRAORAL - PERIAPICAL FIRST RADIOGRAPHIC IMAGE Routine 03/21/2025 8:00 AM EDT BITEWINGS - 4 RADIOGRAPHIC IMAGES Routine 03/21/2025 8:00 AM EDT PROPHYLAXIS - ADULT Routine 03/21/2025 8 :00 AM EDT INTRAORAL - COMPLETE SERIES OF RADIOGRAPHIC IMAGES Routine 08/16/2019 12:00 AM EST from Last 3 Months or Most Recently Relevant to Health Maintenance Insurance [facility] PARTIAL (MEDICAID) Care Teams Debeaker Relationship Specialty Start Date End Date Name, MD Corey [address] [place] [phone] PCP - General Internal Medicine 04/16/25
--- OUTSIDE RECORDS SUMMARY | 2025-04-19 08:40 | XMS_ITS | Encounter Summary ---
Author Organization [employer] Address [address] [place] [address] 7 [place] [address] Care Team Providers Care Firmware Test Engineer Name Role Phone Unavailable Primary Care Provider Unavailabl e Reason for Visit * Reason Onset Date Comments Chart Prep 04/15/2025 Encounter Details Date Type Department Care Team ([facility] st Contact Info) Description 04/15/2025 Telephone [facility] MED[facility] [address] [place] [address] Name, MD Corey [address] [place] [address] Chart Prep Social History Tobacco Use Types Packs/Day Years Used Date Smoking Tobacco: Never Smokeless Tobacco: Never Depression Answer Date Recorded Patient Health Questionnaire-9 Score 0 04/16/2025 Patient Health Questionnaire-9 Score 0 04/16/2025 Last PHQ-9: Questionnaire Data Not on file 1 Depression Answer Date Recorded Patient Health Questionnaire-2 Score 0 04/16/2025 Comments Unknown Sex and Gender Information Value Date Recorded Sex Assigned at Female 04/19/2022 10:36 AM EDT Legal Sex Female 10:36 AM EDT Gender Identity Female 03/20/2025 8:12 AM EDT Sexual Orientation Straight 03/20/2025 8: 12 AM EDT documented as of this encounter Miscellaneous Notes * Telephone Encounter - Alyson Vaughn MA - 04/15/2025 1:24 PM EDT Chart Prep Labs: not applicable Images: not applicable Referrals: not applicable Vaccines due: Covid, Flu, Hep B, Hep A, HPV, and DTAP Screenings: mammogram and pap smearAlcohol/Substance Use Screening Overdue care gaps: SBIRT, SDOH, PHQ-9, CLIFF-7, Oral health screening, Disability screen, and Tobacco documented in this encounter Plan of Treatment Upcoming Encounters Date Type Department Care Team (Late st Contact Info) Description 05/08/2025 11:15 AM EST Procedure Visit [facility] MED[facility] [address] [place] [address] Ericka Gill CNM [address] [place] [address] 05/09/2025 8:00 AM EST Office Visit [facility] [address] [place] [address] Chuck Pastrana [address] [place] [address] 09/24/2025 8:00 AM EDT Office Visit [facility] [address] [place] [address] Kong Vázquez documented as of this encounter Visit Diagnoses Not on filedocumented in this encounter
== END 2025-04-19 09:28 | disposition home or self-care (01) ==
LOC: HO.HOS 08:26
PROVIDERS: PCP Internal Medicine Geriatric Medicine
DX: G56.02 Carpal tunnel syndrome, left upper limb (principal)
CPT/HCPCS: 99204

== ENCOUNTER → 2025-04-19 08:26 | Outpatient (BNVA) | payer OTHER, SELFPAY | PROVIDERS: PCP Internal Medicine Geriatric Medicine | DX: R20.0 Anesthesia of skin (principal); R20.2 Paresthesia of skin; G56.02 Carpal tunnel syndrome, left upper limb | CPT/HCPCS: 99202 ==

== ENCOUNTER 2025-04-22 08:03 | Outpatient (REF) | payer OTHER, SELFPAY ==
--- OUTSIDE RECORDS SUMMARY | 2025-04-18 09:00 | XMS_ITS | Encounter Summary ---
Author Organization [employer] Address [address] [place] [address] [address] [address] Care Team Providers Care Bisque Kiln Placer Name Role Phone Name, Corey NEVAREZ Primary Care Provider [phone] Reason for Visit * Reason Comments Filling Post and core #10 Encounter Details Date Type Department Care Team ([facility] st Contact Info) Description 04/18/2025 10:00 AM EDT Office Visit [facility] ADULT D[facility]AL [address] [place] [address] Chuck Pastrana [address] [place] [address] Social History Tobacco Use Types Packs/Day Years [...] Sign Reading Time Taken Comments Blood Pressure 115/72 04/18/2025 10:09 AM EDT Pulse - - Temperature - - Respiratory Rate - - Oxygen Saturation - - Inhaled Oxygen Concentration - - Weight - - Height - - Body Mass Index - - documented in this encounter Progress Notes * Chuck Pastrana - 04/18/2025 10:00 AM EDT Dental procedures in this visit [id number] - PREFABRICATED POST AND CORE IN ADDITION TO CROWN 10 (Completed) Service provider: Chuck Pastrana Billing provider: Keenan Landaverde DDS [id number] - CASE PRESENTATION, DETAILED AND EXTENSIVE TREATMENT PLANNING (Completed) Service provider: Chuck Pastrana Billing provider: Keenan Landaverde DDS Patient ID: Camelia Eduardo is a 40 y.o. female. Time Out: Date: 04/18/2025 Location: [facility] Tooth: #10 Procedure: Post & Core Verified the above with patient, greenhouse assistant, and provider. Confirmed via patient's chart, intraorally and by radiographs. Academic Affairs Manager: not applicable Prefab post and core done on # [address] Chuck Pastrana Risk, benefits, and alternatives discussed with the patient. CONSENT FORM INITIALED & SIGNED BY THE PATIENT AND COUNTERSIGNED BY Dr. Chuck Pastrana Medical history: Reviewed in EHR, patient doesn't report any changes in health issues that could alter treatment plan or outcome Vitals: Blood pressure 115/72, last menstrual period 03/22/2025. Allergies: Reviewed in EHR Medications: Reviewed in EHR - No local anesthetics used - Temporary samaritan removed. - Tooth length - 21 mm - Post space made- 15 mm - Alvarez-percha removed using Aguilar Lemont - Para-post reamer used size: 4 - Para-post size (brand/ size) used: 4 - 1st PA - of tooth # 10 to confirm the post size and length. - Irrigation done using Sodium Hypochlorite - Post space dried using paper points - agricultural real estate agent applied - Post cemented using RelyX. - Core placed using RelyX - 2nd PA - of tooth # 10 for post op confirmation. - Core smoothed and polished. - Alevism polished Patient satisfied, left in stable condition NV: [facility] prep Provider: Dr. Chuck Pastrana Transverse Abdominal Muscle Surgeon: Day Eubanks Supervising dentist: Dr. Landaverde * Keenan Landaverde DDS - 04/18/2025 10:00 AM EDT Reviewed and signed. documented in this encounter Plan of Treatment Upcoming Encounters Date Type Department Care Team (Late st Contact Info) Description 05/08/2025 11:15 AM EST Procedure Visit [facility] MEDICINE [address] [place] [address] Ericka Gill CNM [address] [place] [address] 05/09/2025 8:00 AM EST Office Visit [facility] ADULT D[facility]AL [address] [place], [place] [phone] Sunni Pastranaricio [address] [place], [place] [phone] 09/24/2025 8:00 AM EDT Office Visit [facility] AD[facility] D[facility] [address] [place], [place] [phone] Kong Vázquez Scheduled Orders Name Type Priority Associated Diagnoses Orde r Schedule 10 10 CROWN PREP Dental Routine 1 Occurr ences starting 04/18/2025 documented as of this encounter Procedures Procedure Name Priority Date/Time Associated Diagnosis Comments 10 PREFABRICATED POST AND CORE IN ADDITION TO CROWN Routine 04/18/2025 10:00 AM EDT CASE PRESENTATION, DETAILED AND EXTENSIVE TREATMENT PLANNING Routine 04/18/2025 10:00 AM EDT documented in this encounter Visit Diagnoses Not on filedocumented in this encounter Additional Health Concerns Assessment Noted Time PHQ-9 Depression Total Score: 0 04/16/20 1:16 PM EDT documented as of this encounter Care Teams Bisque Kiln Placer Relationship Specialty Start Date End Date Name, MD Corey [address] [place] [address] PCP - General Internal Medicine 04/16/25 documented as of this encounter
--- OUTSIDE RECORDS SUMMARY | 2025-04-22 08:09 | XMS_ITS | Clinical Summary ---
Author Organization [facility] Address [address] [place] [address] Care Team Providers Care Loans Consultant Name Role Phone Dorys Alfaro PA-C Primary [...] 09/01/2018, 05/06 Depression Annual Screen 06/20/2024 09/01/2018 [id number] ( season) 2025 05/20/2021, 10/28/2020, 10/07/2020 Hepatitis [...] 3:51 PM EST) TREPONEMAL AB NEGATIVE NEGATIVE [facility] 05/29/2019 3:51 PM EST 05/29/2019 3:57 PM EST N[facility]ative [facility] 05/29/2019 7:27 PM EST [employer], [place] [address] Nutrition Counselor - Celestina Moore MD PT ID [id number] ORD# [id number] us Dorys Alfaro PA-C LAB - BLOOD [place] [address], * HIV-1 & HIV-2 ANTIBODIES (05/29/2019 3:51 PM EST) [facility] HIV 1 AND 2 ANTIBODY SCREEN NEGATIVE NEGATIVE [facility] Comment: This assay is a 4th [...] PM EST 05/29/2019 3:[address] [facility] - 05/29/2019 7:56 PM EST [facility], [place] [address] Nutrition Counselor - Celestina Moore MD PT ID [id number] ORD# [id number] us Dorys Alfaro PA-C LAB - BLOOD DRAW Final Resul t Performing Organization Address City/State/[facility] [place] [address], * (ABNORMAL) COMPRE METAB PANEL (05/29/2019 3:51 PM EST) [facility] GLUCOSE 81 70 - 100 mg/dL [facility] Comment:Reference range appl icable to fasting specimens only BUN 16 5 - 25 mg/dL [facility] CREAT 0.78 0.5 - 1.1 mg/dL [facility] GLOMERULAR FILTRATION RATE > 60 [facility] Comment: If patient is -Chadian, multiply result by 1.21 Chronic Kidney Disease: < 60 ml/min/1.73 square meters Kidney Failure: < 15 ml/min/1.73 square meters SODIUM 136 135 - 145 mEq/L [facility] POTASSIUM 4.2 3.5 - 5.5 mmol/L [facility] CHLORIDE 104 96 - 110 mmol/L [facility] CO2 26 21 - 32 mmol/L [facility] ANION GAP 6 3 - 11 [facility] CALCIUM 10.1 8.5 - 10.5 mg/dL [facility] ALBUMIN 4.1 3.2 - 5.0 G/dL [facility] SGOT 37 10 - 42 U/L [facility] SGPT 105(H) 10 - 60 U/L [facility] TOTAL PROTEIN 7.6 6.0 - 8.0 G/dL [facility] BILI, TOTAL 0.4 0.0 - 1.4 mg/dL [facility] ALK PHOS 137(H) 42 - 121 U/L [facility] Blood specimen (specimen) Blood / Unknown 05/29/2019 3:51 PM EST 05/29/2019 3:[address] [facility] - 05/29/2019 7:09 PM EST [facility] [employer], [place] [address] Nutrition Counselor - Celestina Moore MD PT ID [id number] ORD# [id number] us Dorys Alfaro PA-C LAB - BLOOD DRAW Edited Resu lt - Final Performing Organization Address City/State/[facility] [place] [address], * (ABNORMAL) LIPID PANEL (09/01/2018 10:05 AM EDT) CHOLESTEROL 175 0 - 200 mg/dL [facility] TRIGLYCERIDES 55 0 - 150 mg/dL [facility] HDL CHOLESTEROL 61 >40 mg/dL [facility] LDL CALCULATED 103(H) 0 - 100 mg/dL [facility] TC-HDLC RATIO 2.9 0 - 4.4 mg/dL [facility] Blood specimen (specimen) Blood / Unknown 09/01/2018 10:05 AM EDT 09/01/2018 10:[address] [facility] - 09/01/2018 12:13 PM EDT [employer], a member of [address] [address] Nutrition Counselor - Cyndi Lang MD PT ID [id number] ORD# [id number] Dorys Alfaro PA-C LAB - BLOOD DRAW Final Resul t Performing Organization Address City/[facility]/ZIP Co de Phone Number [facility] [address] [place] [address], * (ABNORMAL) PAP, LIQUID BASED (08/22/2017 4:06 PM EST) PAP abnormal NORMAL - ABNORMAL [facility] Comment:LSIL, high risk HPV positive Specimen from uterine cervix (specimen) Cervix uteri structure / Unknown 08/22/2017 4:06 PM EST Dorys Alfaro PA-C LAB - PATHOLOGY AND CYTOLOGY AMBULATORY Final Result Performing Organization Address [facility] de Phone Number [facility] [address] [place] [address], * HEPATITIS A,B,C PANEL (05/06/2016 11:18 AM EST) HEPATITIS B SURFACE ANTIBODY NEGATIVE NEGATIVE [facility] HEPATITIS B SURFACE ANTIGEN NEGATIVE NEGATIVE [facility] HE[facility] C VIRUS DIAGNOSTIC NEGATIVE NEGATIVE [facility] HEPATITIS B CORE ANTIBODY NEGATIVE NEGATIVE [facility] HEPATITIS A ANTIBODY TOTAL NEGATIVE NEGATIVE [facility] Blood specimen (specimen) Blood / Unknown 05/06/2016 11:18 AM EST 05/06/2016 11:49 AM EST [facility]ative [facility] - 05/06/2016 4:51 PM EST [employer] [address] [place] [address] PT ID [id number] ORD# [id number] Dorys Alfaro PA-C LAB - BLOOD DRAW Edited Resu lt - Final Performing Organization Address City/[facility] Co de Phone Number [facility] [address] [phone] from Last 3 Months or Most Recently Relevant to Health Maintenance Insurance [facility] S[facility] NET DENTAL [employer] Care Teams Loans Consultant Relationship Specialty Start Date End Date Dorys Alfaro PA-C [address] [place] [phone] PCP - General Internal Medicine 02/27/16
--- OUTSIDE RECORDS SUMMARY | 2025-04-22 08:09 | XMS_ITS | Clinical Summary ---
Author Organization [facility] Address [address] [place] [phone] Care Team Providers Care Criminology Teacher Name Role Phone Dorys Alfaro Primary Care Provider [phone] Surgical History Surgery Date Site/Laterality Comments TUBAL LIGATION PROCEDURE: HISTORICAL TUBAL LIGATION APPENDECTOMY PROCEDURE: HISTORICAL APPENDECTOMY CERVICAL BIOPSY W/ LOOP ELECTRODE EXCISION 12/12/2017 PROCEDURE: AL CONIZATION CERVIX W/WO D&C RPR ELTRD EXC Medical History Medical History Date Comments Asthma 07/09/2016 DX:Asthma Carpal tunnel syndrome, bilateral 06/22/2019 DX:Carpal tunnel syndrome, bilateral Fatty liver 07/09/2016 DX:Fatty liver GERD (gastroesophageal reflu x disease) 07/12/2016 DX:GERD (gastroesophageal re flux disease) History of abnormal cervical Pap smear 06/16/2017 DX:History of abnormal cervi toiyn Pap smear; COMMENT: LSIL w/ + high risk HPV 07/23/2016 ,Colpo STEPHANIE I 09/2016 LSIL pap 08/2017 Colpo STEPHANIE 2 10/2017, LEEP STEPHANIE 2 W/+ ecto and endocervical with neg deep radial margins, ECC Neg, Normal pap and neg ECC 09/2018 History of Helicobacter pylo ri infection 06/22/2019 DX:History of Helicobacter p ylori infection; COMMENT: 04/2016 s/p treatment Liver hemangioma 06/22/2019 DX:Liver dae ioma; COMMENT: 1.3 cm US 05/10/16, to repeat US 6 months for stability Family History Medical History Relation Name Comments Breast cancer Aunt Diabetes Father Hypertension Father Stroke Father Breast cancer Maternal Grandmother Diabetes Mother Hypertension Mother Relation Name Status Comments Aunt Alive Father Maternal Grandmother Mother Social History Tobacco Use Types Packs/Day Years Used Date Smoking Tobacco: Never Smokeless Tobacco: Never Alcohol Use Standard Drinks/Week Comments Yes 0 (1 standard drink = 0.6 oz pur e alcohol) Comments Unknown Sex and Gender Information Value Date Recorded Sex Assigned at Not on file Legal Sex Female 12:14 AM EST Gender Identity Not on file Sexual Orientation Not on file Obstetrics History Plan of Treatment Health Maintenance Due Date Last Done Comments Breast Cancer Screening 1983 DTaP,Tdap,and Td Vaccines (1 - Tdap) 2002 HPV Vaccines (1 - 3-dose SCD M series) 2010 Hepatitis B Vaccines (2 of 3 - Hep B Twinrix 3-dose series) 09/29/2018 09/01/2018 Cervical Cancer Screening: P ap Smear 09/22/2019 09/21/2018 Depression Screening 06/20/2024 COVID-19 Vaccine ( - 2023-2 5 season) 2025 Influenza Vaccine (#1) 2025 RSV Immunization Adult Patie nts (1 - 1-dose 75+ series) 2058 Hepatitis A Vaccines Aged Out 09/01/2018 No long er eligible based on patient's age to complete this topic HIB Vaccines Aged Out No longer eligi ble based on patient's age to complete this topic IPV Vaccines Aged Out No longer eligi ble based on patient's age to complete this topic MMR Vaccines Aged Out No longer eligi ble based on patient's age to complete this topic Meningococcal ACWY Vaccine Aged Out N o longer eligible based on patient's age to complete this topic Meningococcal B Vaccine Aged Out No l onger eligible based on patient's age to complete this topic Pneumococcal Vaccine: Pediat rics (0 to 5 Years) and At-Risk Patients (6 to 49 Years) Aged Out No longer eligi ble based on patient's age to complete this topic RSV Immunization Patients Un ho 20 months Aged Out No longer eligible b ased on patient's age to complete this topic Varicella Vaccines Aged Out No longer eligible based on patient's age to complete this topic Procedures Procedure Name Priority Date/Time Associated Diagnosis Comments PAP SMEAR Routine 09/21/2018 from Last 3 Months or Most Recently Relevant to Health Maintenance Results * Pap smear (09/21/2018) 09/21/2018 Narrative HISTORICAL TESTING LAB RESULTING AGENCY - 09/29/2018 5:20 PM EDT [id number] THINPREP PAP, IMAGED: NEGATIVE FOR SQUAMOUS INTRAEPITHELIAL LESION AND MALIGNANCY . CLUE CELLS ARE PRESENT. ROB RODRIGUES(ASCP) (CASE ELECTRONICALLY SIGNED 09 29 2018) RESULT OF APTIMA HIGH RISK HPV ASSAY: HIGH RISK HPV: NEGATIVE (SEROTYPES 16,18,31,33,35,39,45,51,52,56,58,59,66,68) COMPLETED ON 2018-09-29 ADEQUACY: SATISFACTORY ENDOCERVICAL/TRANSFORMATION ZONE COMPONENT PRESENT. SOURCE: THINPREP PAP HPV ANY DX: REFLEX 16 AND 18, CERVICAL, IMAGED CLINICAL INFORMATION: HPV ANY DIAGNOSIS. PAP HX POS STEPHANIE 10/2017 S/P LEEP, LMP 09/03/18 [[id number]] us Obey Ruby MD LAB CYTOLOGY ORDERABLES Final Result HISTORICAL TESTING LAB RESULTING AGENCY from Last 3 Months or Most Recently Relevant to Health Maintenance Care Teams Criminology Teacher Relationship Specialty Start Date End Date Dorys Alfaro PA [address] [place] [phone] PCP - General Internal Medicine 04/05/17
--- OUTSIDE RECORDS SUMMARY | 2025-04-22 08:10 | XMS_ITS | Clinical Summary ---
Author Organization [employer] Address [address] [facility] 7t [place] [address] Care Team Providers Care Frothing Machine Operator Name Role Phone Name, Corey NEVAREZ Primary Care Provider [phone] Allergies No known active allergies Medications celecoxib [...] Description 04/18/2025 10:00 AM EDT Office Visit [facility] [address] [place] [address] Chuck Pastrana 04/16/2025 1:15 PM EDT Office Visit [facility] MEDICINE [address] [place] [address] Corey Luevano MD Uncomplicated asthma, unspecified asthma [...] for diabetes mellitus 04/16/2025 Travel 04/15/2025 Telephone [facility] MEDICINE [address] [place] [address] Corey Luevano MD Chart Prep 04/09/2025 Patient Outreach [facility] [address] [place] [address] Corey Luevano MD Pre-visit Planning ([facility] unable to reach [facility] ) 03/26/2025 1:00 PM EDT Office Visit [facility] [address] [place] [address] Chuck Pastrana 03/25/2025 11:00 AM EDT Office Visit [facility] [address] [place] [address] Chuck Pastrana 03/22/2025 Travel 03/21/2025 8:00 AM EDT Office Visit [facility] [address] [place] [address] Raheem, Faviola 02/12/2025 Travel 02/06/2025 Travel from [...] Description 05/08/2025 11:15 AM EST Procedure Visit [facility] MED[facility]INE [address] [place] [address] Ericka Gill, CNM [address] [place] [address] 05/09/2025 8:00 AM EST Office Visit [facility] [address] [place], [place] [phone] Jt Pastranaio [address] [place], [place] [phone] 09/24/2025 8:00 AM EDT Office Visit [facility] [address] [place], [place] [phone] Kong Vázquez Health Maintenance Due Date Last [...] Most Recently Relevant to Health Maintenance Insurance [facility] DENTAL - HSN PARTIAL (MEDICAID) Care Teams Frothing Machine Operator Relationship Specialty Start Date End Date Name, MD Corey [address] [place] [phone] PCP - General Internal Medicine 04/16/25
[2025-04-22 11:49] LABS: Hematocrit 41.4 % (37.0-47.0); Hemoglobin 12.7 g/dl (12.0-16.0); Imm Gran Abs Auto 0.03 X10*3/uL (0.00-0.03); Imm Gran Pct Auto 0.5 % (0.0-0.4); Lymphocytes Absolute Auto 1.9 X10*3/uL (1.2-4.9); Mean Corpuscular HGB Conc 30.7 g/dl (31.0-35.0); Mean Corpuscular Hemoglobin 25.8 pg (27.0-33.0); Mean Corpuscular Volume 84.0 fL (80.0-98.0); NRBC Abs Auto 0.000 X10*3/uL (0.0-0.012); NRBC Pct Auto 0.0 /100WBC (0.0-0.2); Red Blood Count 4.93 X10*6/uL (4.20-5.50)
[2025-04-22 11:50] LABS: Platelet Count 225 X10*3/uL (160-400); White Blood Count 6.5 X10*3/uL (4.8-10.8)
[2025-04-22 12:19] LABS: Alanine Aminotransferase 67 U/L (0-31); Albumin Level 4.1 g/dL (3.5-5.0); Alkaline Phosphatase 170 U/L (39-117); Anion Gap 9 (12-20); Aspartate Amino Transferase 43 U/L (5-31); Blood Urea Nitrogen 10 mg/dL (9-16); Calcium 9.1 mg/dL (8.4-10.2); Carbon Dioxide 26 mmol/L (22-29); Chloride 109 mmol/L (96-108); Cholesterol 194 mg/dL (<200); Estimated Glomerular Filt Rate > 60; HDL Cholesterol 62 mg/dL (>40); Potassium 4.3 mmol/L (3.3-5.1); Sodium 140 mmol/L (135-145); Total Protein 7.1 g/dL (6.5-8.0); Triglycerides 68 mg/dL (<150)
== END 2025-04-22 08:04 | disposition home or self-care (01) ==
LOC: HO.HHCL 08:03
PROVIDERS: PCP Internal Medicine Geriatric Medicine; Visit Provider Internal Medicine Geriatric Medicine
DX: R12 Heartburn (principal); Z13.220 Encounter for screening for lipoid disorders; Z13.1 Encounter for screening for diabetes mellitus
CPT/HCPCS: 36415; 80053; 80061; 85025

== ENCOUNTER 2025-05-08 15:10 | Outpatient (REF) | payer OTHER, SELFPAY ==
--- OUTSIDE RECORDS SUMMARY | 2025-05-08 11:15 | XMS_ITS | Encounter Summary ---
Author Organization [employer] Address [address] [facility] 7t [place] [address] Care Team Providers Care General Accountant Name Role Phone Name, Corey NEVAREZ Primary Care Provider [phone] Encounter Details Date Type Department Care Team (Latest Contact Info) Description 05/08/2025 11:15 AM EST Procedure Visit [facility] [address] [place], [place] [phone] Ericka Gill CNM [address] [place] [address] Cervical cancer screening (Primary Dx) Social History [...] by CIN1 on colpo in 2016. No SENIOR FINANCIAL REPORTING ANALYST concerns today. Would like breast and pelvic [...] 04/20/2025 SpO2 94% BMI27.73 kg/m?? Physical Exam Chemical Mixer present: declines motorized squad lieutenant. Constitutional: Appearance: Normal appearance. Chest: Breasts: Right: [...] 06/11/2025 8:00 AM EST Office Visit [facility] [address] [place] [address] Chuck Pastrana [address] [place] [address] 09/24/2025 8:00 AM EDT Office Visit [facility] [address] [place] [address] Kong Vázquez Scheduled Orders Name Type Priority [...] Provider LAB CYTOLOGY ORDERABLES F inal Result [facility] [address] [place] [phone] * (ABNORMAL) Tissue Pathology (12/12/2017 12:00 [...] documented as of this encounter Care Teams General Accountant Relationship Specialty Start Date End Date Name, MD Corey [address] [place] [address] PCP - General Internal Medicine 04/16/25 documented as of this encounter
--- OUTSIDE RECORDS SUMMARY | 2025-05-09 08:00 | XMS_ITS | Encounter Summary ---
Author Organization [employer] Address [address] [facility] 7 [place] [address] Care Team Providers Care Boiler Control Room Operator Name Role Phone Name, Corey NEVAREZ Primary Care Provider [phone] Reason for Visit * Reason Comments Filling Encounter Details Date Type Department Care Team ([facility] Contact Info) Description 05/09/2025 8:00 AM EST Office Visit [facility] ADULT D[facility]AL [address] [place], [place] [phone] Victoriano, Chuck [address] [place] [address] Social History Tobacco Use Types Packs/Day Years [...] Time Out: Date: 05/09/2025 Location: [facility] Tooth: #4 Procedure: Mormonism Verified the above with patient, rehab care assistant, and provider. Confirmed via patient's chart, intraorally and by radiographs. Cullet Crusher: not applicable Composite church done on # [address] Chuck [...] carpule 4% septocaine/articaine 1:100,000 epinephrine - Existing church and recurrent decay removed - Matrix band and wedge used as needed - Desensitizer: Gluma - Etching done using 37% phosphoric acid. - scale agent applied. - Composite church done using Filtek body/flowable composite, shade A2 - Anatomy and margins adjusted - Proximal contact confirmed with floss. - Occlusion checked with articulating paper - Necessary reductions made. - Mormonism smoothed and polished. - Post op instructions given Patient satisfied, left in stable condition Patient made aware possible post op sensitivity NV: April Provider: Dr. Chuck Pastrana Manager Agricultural: Minerva Crowell Supervising dentist: Dr. Hagen * [...] Description 06/11/2025 8:00 AM EST Office Visit [facility]ULT [facility] [address] [place] [address] Chuck Pastrana [address] [place] [address] 09/24/2025 8:00 AM EDT Office Visit [facility]ULT [facility] [address] [place] [address] Kong Vázquez documented as of this encounter [...] documented as of this encounter Care Teams Boiler Control Room Operator Relationship Specialty Start Date End Date Name, MD Corey [address] [place] [address] PCP - General Internal Medicine 04/16/25 documented as of this encounter
--- OUTSIDE RECORDS SUMMARY | 2025-05-13 14:51 | XMS_ITS | Clinical Summary ---
Author Organization [facility] Address [address] [place] [phone] Care Team Providers Care Donation Specialist Name Role Phone Dorys Alfaro Primary Care Provider [phone] Surgical History Surgery Date Site/Laterality Comments TUBAL LIGATION PROCEDURE: HISTORICAL TUBAL LIGATION APPENDECTOMY PROCEDURE: HISTORICAL APPENDECTOMY CERVICAL BIOPSY W/ LOOP ELECTRODE EXCISION 12/12/2017 PROCEDURE: [place] CONIZATION CERVIX W/WO D&C RPR ELTRD EXC [...] RESULTING AGENCY - 09/29/2018 5:20 PM EDT [id number] THINPREP PAP, IMAGED: NEGATIVE FOR SQUAMOUS INTRAEPITHELIAL [...] Recently Relevant to Health Maintenance Care Teams Donation Specialist Relationship Specialty Start Date End Date Dorys Alfaro PA [address] [place] [phone] PCP - General Internal Medicine 04/05/17
--- OUTSIDE RECORDS SUMMARY | 2025-05-13 14:52 | XMS_ITS | Encounter Summary ---
Author Organization [employer] Address [address] [facility] 7t [place] [address] Care Team Providers Care Ditching Machine Engineer Name Role Phone Name, Corey NEVAREZ Primary Care Provider [phone] Encounter Details Date Type Department Care Team [...] 06/11/2025 8:00 AM EST Office Visit [facility] [address] [place] [address] Chuck Pastrana [address] [place] [address] 09/24/2025 8:00 AM EDT Office Visit [facility] [address] [place] [address] Kong Vázquez documented as of this encounter Visit Diagnoses Not on filedocumented in this encounter Additional Health Concerns Assessment Noted Time PHQ-9 Depression Total Score: 0 04/16/20 25 1:16 PM EDT documented as of this encounter Care Teams Ditching Machine Engineer Relationship Specialty Start Date End Date Name, MD Corey [address] [place] [address] PCP - General Internal Medicine 04/16/25 documented as of this encounter
--- OUTSIDE RECORDS SUMMARY | 2025-05-13 14:52 | XMS_ITS | Clinical Summary ---
Author Organization [employer] Address [address] [facility] [address] [place] [address] Care Team Providers Care Wire Technician Name Role Phone Name, Corey NEVAREZ Primary Care Provider [phone] Allergies No known active allergies Medications celecoxib [...] Description 05/09/2025 8:00 AM EST Office Visit [facility] [address] [place] [address] Chuck Pastrana 05/08/2025 11:15 AM EST Procedure Visit [address] [address] Ericka Gill CNM Cervical cancer screening (Primary Dx) 05/08/2025 Travel 05/07/[address] [address] Ericka Gill CNM chartprep 04/18/2025 10:00 AM EDT Office Visit [facility] [address] [place] [address] Chuck Pastrana 04/16/2025 1:15 PM EDT Office Visit [address] [address] Corey Luevano MD Uncomplicated asthma, unspecified asthma [...] for diabetes mellitus 04/16/2025 Travel 04/15/2025 Telephone [facility] [address] [place] [address] Corey Luevano MD Chart Prep 04/09/2025 Patient Outreach [facility] [address] [place] [address] Corey Luevano MD Pre-visit Planning ([facility] unable to reach [facility] ) 03/26/2025 1:00 PM EDT Office Visit [facility] [address] [place] [address] Chuck Pastrana 03/25/2025 11:00 AM EDT Office Visit [facility] [address] [place] [address] Chuck Pastrana 03/22/2025 Travel 03/21/2025 8:00 AM EDT Office Visit [facility] [address] [place] [address] Faviola Maciel 02/12/2025 Travel from Last 3 [...] AM EST Office Visit [facility] [address] [place] [address] Chuck Pastrana [address] [place] [address] 09/24/2025 8:00 AM EDT Office Visit [facility] [address] [place] [address] Kong Vázquez Health Maintenance Due Date Last [...] Blood Count 6.5 4.8 - 10.8 X10*3/uL [facility] Red Blood Count 4.93 4.20 - 5.50 X10*6/uL [facility] Hemoglobin 12.7 12.0 - 16.0 g/dl [facility] Hematocrit 41.4 37.0 - 47.0 % [facility] Mean Corpuscular Volume 84.0 80.0 - 98.0 fL [facility] Mean Corpuscular Hemoglobin 25.8(L) 27.0 - 33.0 pg [facility] Mean Corpuscular HGB Conc 30.7(L) 31.0 - 35.0 g/dl [facility] Red Cell Distribution Width 13.6 11.0 - 16.0 % [facility] Platelet Count 225 160 - 400 X10*3/uL [facility] Mean Platelet Volume 14.0(H) 9.4 - 12.3 fL [facility] Neutrophils Percent Auto 50.2 45 - 73 % [facility] Imm Gran Pct Auto 0.5(H) 0.0 - 0.4 % [facility] Lymphocytes Percent Auto 29.2 20 - 40 % [facility] Monocytes Percent Auto 9.3 2 - 11 % [facility] Eosinophils Percent Auto 9.3(H) 0 - 4 % [facility] Basophils Percent Auto 1.5 0 - 2 % [facility] NRBC Pct Auto 0.0 0.0 - 0.2 /100WBC [facility] Neutrophils Absolute Auto 3.3 2.0 - 8.3 x10*3/uL [facility] Imm Gran Abs Auto 0.03 0.00 - 0.03 X10*3/uL [facility] Lymphocytes Absolute Auto 1.9 1.2 - 4.9 X10*3/uL [facility] Monocytes Absolute Auto 0.6 0.1 - 1.2 X10*3/uL [facility] Eosinophils Absolute Auto 0.6(H) 0.0 - 0.4 X10*3/uL [facility] Basophils Absolute Auto 0.1 0.0 - 0.2 X10*3/uL [facility] NRBC Abs Auto 0.000 0.0 - 0.012 X10*3/uL [facility] Blood Venous blood specimen / Unknown 04/22/2025 8:09 AM EST 04/22/2025 11:27 AM EST us Corey Luevano MD LAB BLOOD ORDERABLES Edited Resu lt - Final [facility] [address] [place] [address] [phone] * (ABNORMAL) Lipid Panel, Standard (04/22/2025 8:09 AM EST) Triglycerides 68 <150 mg/dL [facility] Comment:Desirable Triglyceri de: less than 150 mg/dLBorderline High Triglyceride 150-199 mg/dLHigh Triglyceride: 200-499 mg/dLVery High Triglyceride: greater than or equal to 5OO mg/dL Cholesterol 194 <200 mg/dL [facility] Comment:Desirable Cholestero l: less than 200 mg/dLBorderline High Cholesterol: 200-239 mg/dLHigh Cholesterol: greater than 239 mg/dL LDL Cholesterol Calculated 119(H) <100 mg/dL [facility] Comment:Desirable LDL: less than 100 mg/dLNear Optimal/Above Optimal LDL: 110- 129 mg/dLBorderline High LDL: 130-159 mg/dLHigh LDL: 160-189 mg/dLVery High LDL: greater than or equal to 190 mg/dL HDL Cholesterol 62 >40 mg/dL [facility] Comment:Desirable HDL: great er than 40 mg/dL Note: This HDL assay may give artificially low results in patients with liver disease. Blood Venous blood specimen / Unknown 04/22/2025 8:09 AM EST 04/22/2025 11:27 AM EST us Corey Luevano MD LAB BLOOD ORDERABLES Final Resul t [facility] [address] [place] [address] [phone] * (ABNORMAL) Comprehensive Metabolic Panel (04/22/2025 8:09 AM EST) Sodium 140 135 - 145 mmol/L [facility] Potassium 4.3 3.3 - 5.1 mmol/L [facility] Chloride 109(H) 96 - 108 mmol/L [facility] Carbon Dioxide 26 22 - 29 mmol/L [facility] Anion Gap 9(L) 12 - 20 [facility] Urea Nitrogen (BUN) 10 9 - 16 mg/dL [facility] Creatinine, Serum 0.68 0.5 - 1.4 mg/dL [facility] Estimated Glomerular Filt Rate >60 [facility] Comment:Chronic Kidney Disea se: Estimated GFR < 60 mL/min/[id number] Kidney Disease: Estimated GFR < 15 mL/min/1.73m2 Glucose 86 60 - 115 mg/dL [facility] Calcium 9.1 8.4 - 10.2 mg/dL [facility] Bilirubin, Total 0.4 0.0 - 1.0 mg/dL [facility] Aspartate Amino Transferase 43(H) 5 - 31 U/L [facility] Alanine Aminotransferase 67(H) 0 - 31 U/L [facility] Total Protein 7.1 6.5 - 8.0 g/dL [facility] Albumin Level 4.1 3.5 - 5.0 g/dL [facility] Alkaline Phosphatase 170(H) 39 - 117 U/L [facility] Blood Venous blood specimen / Unknown 04/22/2025 8:09 AM EST 04/22/2025 11:27 AM EST Corey Name LAB BLOOD ORDERABLES Final Resul t Performing Organization Address City/[facility]/ZIP Co de Phone Number [facility] [address] [place] [address] [phone] * Pap Smear (09/29/2018 12:00 AM EDT) Swab Historical Provider LAB CYTOLOGY ORDERABLES F inal Result Performing Organization Address City/[facility]/ZIP Co de Phone Number [facility] [address] [place] [address] [phone] from Last 3 Months or Most Recently Relevant to Health Maintenance Insurance [facility] PARTIAL (MEDICAID) Care Teams Wire Technician Relationship Specialty Start Date End Date Name, MD Corey [address] [place] [id number] PCP - General Internal Medicine 04/16/25
== END 2025-05-08 15:11 | disposition home or self-care (01) ==
LOC: HO.LNP 15:10
PROVIDERS: Visit Provider Advanced Practice Midwife
DX: Z12.4 Encounter for screening for malignant neoplasm of cervix (principal)
CPT/HCPCS: 87626; 88175

== ENCOUNTER 2025-05-23 07:07 | Day surgery (SDC) | payer OTHER, SELFPAY ==
--- OUTSIDE RECORDS SUMMARY | 2025-05-08 11:15 | XMS_ITS | Encounter Summary ---
Author Organization [employer] Address [address] [facility] 7t [place] [address] Care Team Providers Care Cancellation Clerk Name Role Phone Name, Corey NEVAREZ Primary Care Provider [phone] Encounter Details Date Type Department Care Team (Latest Contact Info) Description 05/08/2025 11:15 AM EST Procedure Visit [facility] MED[facility]INE [address] [place], [place] [phone] Ericka Gill CNM [address] [place] [address] Cervical cancer screening (Primary Dx) Social History Tobacco Use Types Packs/Day Years Used Date Smoking Tobacco: Never Smokeless Tobacco: Never Alcohol Use Standard Drinks/Week Comments Never 0 (1 standard drink = 0.6 oz pur e alcohol) Depression Answer Date Recorded Patient Health Questionnaire-9 Score 0 04/16/2025 Patient Health Questionnaire-9 Score 0 04/16/2025 Last PHQ-9: Questionnaire Data Not on file 1 Housing Stability Answer Date Recorded What is your housing situation today? I have kang meraz 05/08/[address] you li ve. Do you have problems with any of the following? None of the above 05/08/2025 Food Insecurity Answer Date Recorded Within the past 12 months, y ou worried that your food would run out before you got money to buy more: Never True 05/08/2025 Within the past 12 months,th e food you bought just didn't last and you didn't have enough money to get more: Never True Transportation Answer Date Recorded In the past 12 months, has l ack of transportation kept you from medical appts, meetings, work or from getting things needed for daily living? No 05/08/2025 Utilities Answer Date Recorded In the past 12 months, has t he electric, gas, oil or water company threatened to shut off services in your home? No 05/08/2025 Depression Answer Date Recorded Patient Health Questionnaire-2 Score 0 04/16/2025 Internet Access Answer Date Recorded Internet Access Q1 Yes 05/08/2025 Internet Access Q2 Not on file 05/08/2025 Comments No Intention Date Recorded No desire to become (finding) 1 07/08/2024 Sex and Gender Information Value Date Recorded Sex Assigned at Female 04/19/2022 10:36 AM EDT Legal Sex Female 10:36 AM EDT Gender Identity Female 03/20/2025 8:12 AM EDT Sexual Orientation Straight 03/20/2025 8: 12 AM EDT documented as of this encounter Last Filed Vital Signs Vital Sign Reading Time Taken Comments Blood Pressure 130/70 05/08/2025 11:10 AM EST Pulse 70 05/08/2025 11:10 AM EST Temperature 36.7 C (98.1 F) 05/08/2025 11:10 AM EST Respiratory Rate 14 05/08/2025 11:10 AM EST Oxygen Saturation 94% 05/08/2025 11:10 AM EST Inhaled Oxygen Concentration - - Weight 68.8 kg (151 lb 9.6 oz) 05/08/2025 11:10 AM EST Height - - Body Mass Index 27.73 04/16/2025 1:14 PM EDT documented in this encounter Progress Notes * Ericka Gill CNM - 05/08/2025 11:15 AM EST Subjective Patient ID: Camelia Eduardo is a 40 y.o. female who presents for pap Pap NIL/HPV neg 09/2018. LSIL, HPV positive 2017. Colpo CIN2 10/2017, LEEP STEPHANIE 2 + ecto and endocervical with neg deep radial margins, ECC Neg. LSIL r/o HSIL pap followed by CIN1 on colpo in 2016. No DELICATESSEN STORE MANAGER concerns today. Would like breast and pelvic exam. 1 AMAB partner x 22y, no safety concerns. Has tubal ligation, happy with method. Monthly menses x 5d. No heavy flow. Cramping on first 2 days responds to Celebrex. Mammogram ordered by PCP. Review of Systems Genitourinary: Negative for dyspareunia, dysuria, frequency, genital sores, hematuria, menstrual problem, pelvic pain, urgency, vaginal bleeding, vaginal discharge and vaginal pain. No abnormal bleeding, no breast pain, no breast mass, no nipple discharge Objective BP 130/70 (BP Location: Left arm, Patient Position: Sitting, BP Cuff Size: Adult) Pulse 70 Temp98.1 ??F (36.7 ??C) (Oral) Resp 14 Wt 151 lb 9.6 oz (68.8 kg) LMP 04/20/2025 SpO2 94% BMI27.73 kg/m?? Physical Exam Certified Master Safe Technician present: declines teacher home therapy. Constitutional: Appearance: Normal appearance. Chest: Breasts: Right: Normal. No swelling, bleeding, inverted nipple, mass, nipple discharge, skin change or tenderness. Left: Normal. No swelling, bleeding, inverted nipple, mass, nipple discharge, skin change or tenderness. Genitourinary: General: Normal vulva. Labia: Right: No rash, tenderness, lesion or injury. Left: No rash, tenderness, lesion or injury. Vagina: Normal. No signs of injury and foreign body. No vaginal discharge, erythema, tenderness, bleeding or lesions. Cervix: No cervical motion tenderness, discharge, friability, lesion, erythema, cervical bleeding or eversion. Uterus: Normal. Not enlarged and not tender. Adnexa: Right adnexa normal and left adnexa normal. Right: No mass, tenderness or fullness. Left: No mass, tenderness or fullness. Lymphadenopathy: Upper Body: Right upper body: No supraclavicular or axillary adenopathy. Left upper body: No supraclavicular or axillary adenopathy. Neurological: Mental Status: She is alert. Psychiatric: Mood and Affect: Mood normal. Behavior: Behavior normal. Assessment/Plan Diagnoses and all orders for this visit: Cervical cancer screening - Pap Smear Cotest 1 year if normal/HPV negative. Will contact with results. Routine mammography, has appointment in June. Already referred to genetics due to family history of breast cancer. Occasional vasomotor symptoms, regular menses. Will observe. Report if vasomotor symptoms more bothersome or if she goes more than 2-3 months without a period. Referral note from PCP mentioned ovarian cysts. Camelia denies pelvic pain. Will offer ultrasound tofollowup when we call with pap results. documented in this encounter Plan of Treatment Upcoming Encounters Date Type Department Care Team (Late st Contact Info) Description 06/11/2025 8:00 AM EST Office Visit [facility] [address] [place] [address] Chuck Pastrana [address] [place] [address] 09/24/2025 8:00 AM EDT Office Visit [facility] [address] [place] [address] Kong Vázquez Scheduled Orders Name Type Priority Associated Diagnoses Orde r Schedule Pap Smear Pathology and Cytology Routine Cervical cancer screening Ordered: 05/08/2025 documented as of this encounter Procedures Procedure Name Priority Date/Time Associated Diagnosis Comments PAP SMEAR Routine 09/29/2018 12:00 AM EDT TISSUE PATHOLOGY Routine 12/12/2017 12:00 AM EDT documented in this encounter Results * Pap Smear (09/29/2018 12:00 AM EDT) Swab Historical Provider LAB CYTOLOGY ORDERABLES F inal Result [facility] [address] [place] [phone] * (ABNORMAL) Tissue Pathology (12/12/2017 12:00 AM EDT) Tissue Cervix uteri structure / Unknown Historical Provider MD LAB PATHOLOGY ORDERABLES Final Result documented in this encounter Visit Diagnoses Diagnosis Cervical cancer screening- Primary Screening for malignant neoplasm of the cervix documented in this encounter Additional Health Concerns Assessment Noted Time PHQ-9 Depression Total Score: 0 04/16/20 25 1:16 PM EDT documented as of this encounter Care Teams Cancellation Clerk Relationship Specialty Start Date End Date Name, MD Corey [address] [place] [address] PCP - General Internal Medicine 04/16/25 documented as of this encounter
--- OUTSIDE RECORDS SUMMARY | 2025-05-09 08:00 | XMS_ITS | Encounter Summary ---
Author Organization [employer] Address [address] [facility] 7 [place] [address] Care Team Providers Care Manager Assembly Name Role Phone Name, Corey NEVAREZ Primary Care Provider [phone] Reason for Visit * Reason Comments Filling Encounter Details Date Type Department Care Team ([facility] Contact Info) Description 05/09/2025 8:00 AM EST Office Visit [facility] ADULT DENTAL [address] [place], [place] [phone] Victoriano, Chuck [address] [place] [address] Social History Tobacco Use Types Packs/Day Years [...] Q2 Not on file 05/08/2025 Comments No Sex and Gender Information Value Date Recorded Sex Assigned at Female 04/19/2022 10:36 AM EDT Legal Sex Female 10:36 AM EDT Gender Identity Female 03/20/2025 8:12 AM EDT Sexual Orientation Straight 03/20/2025 8: 12 AM EDT documented as of this encounter Last Filed Vital Signs Vital Sign Reading Time Taken Comments Blood Pressure 122/80 05/09/2025 8:17 AM EST Pulse - - Temperature - - Respiratory Rate - - Oxygen Saturation - - Inhaled Oxygen Concentration - - Weight - - Height - - Body Mass Index - - documented in this encounter Progress Notes * Chuck Pastrana - 05/09/2025 8:00 AM EST Dental procedures in this visit [id number] - RESIN-BASED COMPOSITE - 2 SURF, POSTERIOR 4 MO (Completed) Service provider: Chuck Pastrana Billing provider: Olvin Hagen DMD [id number] - CASE PRESENTATION, DETAILED AND EXTENSIVE TREATMENT PLANNING (Completed) Service provider: Chuck Pastrana Billing provider: Olvin Hagen DMD Patient ID: Camelia Eduardo is a 40 y.o. female. Time Out: Date: 05/09/2025 Location: [facility] Tooth: #4 Procedure: Faith Verified the above with patient, special education assistant, and provider. Confirmed via patient's chart, intraorally and by radiographs. Shipping And Receiving Associate: not applicable Composite sikh done on # [address] Chuck Pastrana Risk, benefits, and alternatives discussed with the patient. CONSENT FORM INITIALED & SIGNED BY THE PATIENT AND COUNTERSIGNED BY Dr. Chuck Pastrana Medical history: Reviewed in EHR Vitals: Blood pressure 122/80, last menstrual period 04/20/2025. Allergies: Reviewed in EHR Medications: Reviewed in EHR ASA 1 - LA: 20% topical benzocaine; Local infiltration with 1 carpule 4% septocaine/articaine 1:100,000 epinephrine - Existing sikh and recurrent decay removed - Matrix band and wedge used as needed - Desensitizer: Gluma - Etching done using 37% phosphoric acid. - healthcare insurance sales agent applied. - Composite sikh done using Filtek body/flowable composite, shade A2 - Anatomy and margins adjusted - Proximal contact confirmed with floss. - Occlusion checked with articulating paper - Necessary reductions made. - Faith smoothed and polished. - Post op instructions given Patient satisfied, left in stable condition Patient made aware possible post op sensitivity NV: April Provider: Dr. Chuck Pastrana Manager Government: Minerva Crowell Supervising dentist: Dr. Hagen * Olvin Hagen DMD - 05/09/2025 8:00 AM EST I have reviewed the documentation and dental procedures made by the rendering provider, Chuck Pastrana DDS, and approve their chart entries for this visit. Olvin Hagen DMD documented in this encounter Plan of Treatment Upcoming Encounters Date Type Department Care Team (Late st Contact Info) Description 06/11/2025 8:00 AM EST Office Visit [facility] ADULT DENTAL [address] [place] [address] Chuck Pastrana [address] [place] [address] 09/24/2025 8:00 AM EDT Office Visit [facility] ADULT [facility] [address] [place] [address] Kong Vázquez documented as of this encounter Procedures Procedure Name Priority Date/Time Associated Diagnosis Comments 4 MO RESIN-BASED COMPOSITE - 2 SURF, POSTERIOR Routine 05/09/2025 8:00 AM EST CASE PRESENTATION, DETAILED AND EXTENSIVE TREATMENT PLANNING Routine 05/09/2025 8:00 AM EST documented in this encounter Visit Diagnoses Not on filedocumented in this encounter Additional Health Concerns Assessment Noted Time PHQ-9 Depression Total Score: 0 10/28/20 25 1:16 PM EDT documented as of this encounter Care Teams Manager Assembly Relationship Specialty Start Date End Date Name, MD Corey [address] [place] [address] PCP - General Internal Medicine 04/16/25 documented as of this encounter
--- OUTSIDE RECORDS SUMMARY | 2025-05-10 11:08 | XMS_ITS | Encounter Summary ---
Author Organization [employer] Address [address] [facility] 7t [place] [address] Care Team Providers Care Petroleum Geologist Name Role Phone Name, Corey NEVAREZ Primary Care Provider [phone] Encounter Details Date Type Department Care Team (Latest Contact Info) Description 05/08/2025 Travel Social History Tobacco Use Types Packs/Day [...] AM EDT documented as of this encounter Plan of Treatment Upcoming Encounters Date Type Department Care Team (Late st Contact Info) Description 06/11/2025 8:00 AM EST Office Visit [facility] [address] [place] [address] Chuck Pastrana [address] [place] [address] 09/24/2025 8:00 AM EDT Office Visit [facility] [address] [place] [address] Kong Vázquez documented as of this encounter Visit Diagnoses Not on filedocumented in this encounter Additional Health Concerns Assessment Noted Time PHQ-9 Depression Total Score: 0 04/16/20 25 1:16 PM EDT documented as of this encounter Care Teams Petroleum Geologist Relationship Specialty Start Date End Date Name, MD Corey [address] [place] [address] PCP - General Internal Medicine 04/16/25 documented as of this encounter
--- OUTSIDE RECORDS SUMMARY | 2025-05-10 11:08 | XMS_ITS | Clinical Summary ---
Author Organization [employer] Address [address] [facility] 7t [place] [address] Care Team Providers Care Dining Room Attendant Name Role Phone Name, Corey NEVAREZ Primary Care Provider [phone] Allergies No known active allergies Medications celecoxib [...] of candidiasis. Do not swallow. 1 each 11 5 Active albuterol (2.5 MG/3ML) 0.083% nebulizer solution Take 3 mL (2.5 mg) by nebulization every 4 (four) hours if needed for wheezing. 75 mL 3 5 026 Active ibuprofen 600 MG tablet Take 1 tablet (600 mg) by mouth every 6 (six) hours if needed for mild pain for up to 20 doses. 20 tablet 5 025 Discontin ued(Side effects) Active Problems Problem [...] Encounters Date Type Department Care Team Description 05/09/2025 8:00 AM EST Office Visit [facility] ADULT DENTAL [address] [place] [address] Chuck Pastrana 05/08/2025 11:15 AM EST Procedure Visit [address] [address] Ericka Gill CNM Cervical cancer screening (Primary Dx) 05/08/2025 Travel 05/07/[address] [address] Ericka Gill CNM chartprep 04/18/2025 10:00 AM EDT Office Visit [facility] ADULT D[facility] [address] [place] [address] Chuck Pastrana 04/16/2025 1:15 PM EDT Office Visit [address] [address] Corey Luevano MD Uncomplicated asthma, unspecified asthma [...] for diabetes mellitus 04/16/2025 Travel 04/15/2025 Telephone [facility] [address] [place] [address] Corey Luevano MD Chart Prep 04/09/2025 Patient Outreach [facility] [address] [place] [address] Corey Luevano MD Pre-visit Planning ([facility] unable to reach [facility] ) 03/26/2025 1:00 PM EDT Office Visit [facility] ADULT D[facility] [address] [place] [address] Chuck Pastrana 03/25/2025 11:00 AM EDT Office Visit [facility] ADULT [facility] [address] [place] [address] Chuck Pastrana 03/22/2025 Travel 03/21/2025 8:00 AM EDT Office Visit [facility] ADULT [facility] [address] [place] [address] Faviola Maciel 02/12/2025 Travel from Last 3 Months Immunizations Immunization Administration Dates Next Due Hep A / Hep B 09/01/2018 Influenza injectable quadrivalent preservative f ree 06/03/2020 Influenza, seasonal, injectable, preservative fr ee 04/16/2025 Tdap 04/16/2025 Family History Medical History Relation Name Comments Diabetes type II Father Heart attack Father Hypertension Father Breast cancer Maternal Grandmother Diabetes Mother Hyperlipidemia Mother Hypertension Mother Breast cancer Mother's Sister 1 Breast cancer Mother's Sister 2 Relation Name Status Comments Father Maternal Grandfather Maternal Grandmother Mother Alive Mother's Sister 1 Alive Mother's [...] Pressure 122/80 05/09/2025 8:17 AM EST Pulse 70 05/08/2025 11:10 AM EST Temperature 36.7 C (98.1 F) 05/08/2025 11:10 AM EST Respiratory Rate 14 05/08/2025 11:10 AM EST Oxygen Saturation 94% 05/08/2025 11:10 AM EST Inhaled Oxygen Concentration - - Weight 68.8 kg (151 lb 9.6 oz) 05/08/2025 11:10 AM EST Height 157.5 cm (5' 2 ) 04/16/2025 1:14 PM EDT Body Mass Index 27.73 04/16/2025 1:14 PM EDT Plan of Treatment Upcoming Encounters Date Type Department Care Team (Late st Contact Info) Description 06/11/2025 8:00 AM EST Office Visit [facility] ADULT D[facility] [address] [place] [address] Chuck Pastrana [address] [place] [address] 09/24/2025 8:00 AM EDT Office Visit [facility] ADULT D[facility] [address] [place] [address] Kong Vázquez Health Maintenance Due Date Last Done Comments HPV Vaccines (1 - 3-dose series) 1998 Hepatitis C Screening 2001 Pneumococcal Vaccine: Pediatrics (0 to 5 Years) and At-Risk Patients (6 to 49) Years (1 of 2 - PCV) 2002 Hepatitis A Vaccines (2 of 3 - Hep A Twinrix risk 3-dose series) 09/29/2018 09/01/2018 Hepatitis B Vaccines (2 of 3 - Hep B Twinrix 3-dose series) 09/29/2018 09/01/2018 Cervical Cancer Screening 09/30/2019 HPV/Cotest 09/30/2019 Pap Smear 09/30/2019 09/29/2018 Dental X-Ray: Full Mouth 08/17/2022 08/16/2019 Mammogram 2023 COVID-19 Vaccine (2024-2 6 season) 2025 05/20/2021, 10/28/2020, 10/07/2020 Dental Oral Exam 09/20/2025 03/21/2025, 08/16/2019 Dental Prophylaxis 09/20/2025 03/21/2025 Dental X-Ray: Bitewings 03/22/2026 03/21/20 25, 08/16/2019 Alcohol/Substance Use Screening 04/16/2026 04/16/2025 Depression Screening 04/16/2026 04/16/2025, 04/16/2025 Disability Screening 04/16/2026 04/16/2025 Family Planning (PISQ) 05/08/2026 05/08/2025 SDOH Screening 05/08/2026 05/08/2025 Tobacco Screening 05/09/2026 05/09/2025 Zoster Vaccines (1 of 2) 2033 DTaP/Tdap/Td [...] TREATMENT PLANNING Routine 05/09/2025 8:00 AM EST 4 MO RESIN-BASED COMPOSITE - 2 SURF, POSTERIOR Routine 05/09/2025 8:00 AM EST LIPID PANEL, STANDARD Routine 04/22/2025 8:09 AM EST Screening for cholesterol level COMPREHENSIVE METABOLIC PANEL Routine 04/22/2025 8:09 AM EST Screening for diabetes mellitus CBC WITH AUTO DIFFERENTIAL Routine 04/22/2025 8:09 AM EST Heartburn CASE PRESENTATION, DETAILED AND EXTENSIVE TREATMENT PLANNING [...] RADIOGRAPHIC IMAGES Routine 08/16/2019 12:00 AM EST PAP SMEAR Routine 09/29/2018 12:00 AM EDT from Last 3 Months or Most Recently Relevant to Health Maintenance Results * (ABNORMAL) CBC auto differential (04/22/2025 8:09 AM EST) White Blood Count 6.5 4.8 - 10.8 X10*3/uL [facility] Red Blood Count 4.93 4.20 - 5.50 X10*6/uL [facility] Hemoglobin 12.7 12.0 - 16.0 g/dl [facility] Hematocrit 41.4 37.0 - 47.0 % [facility] Mean Corpuscular Volume 84.0 80.0 - 98.0 fL [facility] Mean Corpuscular Hemoglobin 25.8(L) 27.0 - 33.0 pg [facility] Mean Corpuscular HGB Conc 30.7(L) 31.0 - 35.0 g/dl [facility] Red Cell Distribution Width 13.6 11.0 - 16.0 % [facility] Platelet Count 225 160 - 400 X10*3/uL [facility] Mean Platelet Volume 14.0(H) 9.4 - 12.3 fL [facility] Neutrophils Percent Auto 50.2 45 - 73 % [facility] Imm Gran Pct Auto 0.5(H) 0.0 - 0.4 % [facility] Lymphocytes Percent Auto 29.2 20 - 40 % [facility] Monocytes Percent Auto 9.3 2 - 11 % [facility] Eosinophils Percent Auto 9.3(H) 0 - 4 % [facility] Basophils Percent Auto 1.5 0 - 2 % [facility] NRBC Pct Auto 0.0 0.0 - 0.2 /100WBC [facility] Neutrophils Absolute Auto 3.3 2.0 - 8.3 x10*3/uL [facility] Imm Gran Abs Auto 0.03 0.00 - 0.03 X10*3/uL [facility] Lymphocytes Absolute Auto 1.9 1.2 - 4.9 X10*3/uL [facility] Monocytes Absolute Auto 0.6 0.1 - 1.2 X10*3/uL [facility] Eosinophils Absolute Auto 0.6(H) 0.0 - 0.4 X10*3/uL [facility] Basophils Absolute Auto 0.1 0.0 - 0.2 X10*3/uL [facility] NRBC Abs Auto 0.000 0.0 - 0.012 X10*3/uL [facility] Blood Venous blood specimen / Unknown 04/22/2025 8:09 AM EST 04/22/2025 11:27 AM EST us Corey Luevano MD LAB BLOOD ORDERABLES Edited Resu lt - Final [facility] [address] [place] [phone] [phone] * (ABNORMAL) Lipid Panel, Standard (04/22/2025 8:09 AM EST) Triglycerides 68 <150 mg/dL [facility] Comment:Desirable Triglyceri de: less than 150 mg/dLBorderline High Triglyceride 150-199 mg/dLHigh Triglyceride: 200-499 mg/dLVery High Triglyceride: greater than or equal to 5OO mg/dL Cholesterol 194 <200 mg/dL [facility] Comment:Desirable Cholestero l: less than 200 mg/dLBorderline High Cholesterol: 200-239 mg/dLHigh Cholesterol: greater than 239 mg/dL LDL Cholesterol Calculated 119(H) <100 mg/dL [facility] Comment:Desirable LDL: less than 100 mg/dLNear Optimal/Above Optimal LDL: 110- 129 mg/dLBorderline High LDL: 130-159 mg/dLHigh LDL: 160-189 mg/dLVery High LDL: greater than or equal to 190 mg/dL HDL Cholesterol 62 >40 mg/dL [facility] Comment:Desirable HDL: great er than 40 mg/dL Note: This HDL assay may give artificially low results in patients with liver disease. Blood Venous blood specimen / Unknown 04/22/2025 8:09 AM EST 04/22/2025 11:27 AM EST us Corey Luevano MD LAB BLOOD ORDERABLES Final Resul t [facility] [address] [place] [phone] [phone] * (ABNORMAL) Comprehensive Metabolic Panel (04/22/2025 8:09 AM EST) Sodium 140 135 - 145 mmol/L [facility] Potassium 4.3 3.3 - 5.1 mmol/L [facility] Chloride 109(H) 96 - 108 mmol/L [facility] Carbon Dioxide 26 22 - 29 mmol/L [facility] Anion Gap 9(L) 12 - 20 [facility] Urea Nitrogen (BUN) 10 9 - 16 mg/dL [facility] Creatinine, Serum 0.68 0.5 - 1.4 mg/dL [facility] Estimated Glomerular Filt Rate >60 [facility] Comment:Chronic Kidney Disea se: Estimated GFR < 60 mL/min/[id number] Kidney Disease: Estimated GFR < 15 mL/min/1.73m2 Glucose 86 60 - 115 mg/dL [facility] Calcium 9.1 8.4 - 10.2 mg/dL [facility] Bilirubin, Total 0.4 0.0 - 1.0 mg/dL [facility] Aspartate Amino Transferase 43(H) 5 - 31 U/L [facility] Alanine Aminotransferase 67(H) 0 - 31 U/L [facility] Total Protein 7.1 6.5 - 8.0 g/dL [facility] Albumin Level 4.1 3.5 - 5.0 g/dL [facility] Alkaline Phosphatase 170(H) 39 - 117 U/L [facility] Blood Venous blood specimen / Unknown 04/22/2025 8:09 AM EST 04/22/2025 11:27 AM EST Corey Name LAB BLOOD ORDERABLES Final Resul t Performing Organization Address City/[facility]/ZIP Co de Phone Number [facility] [address] [place] [address] [phone] * Pap Smear (09/29/2018 12:00 AM EDT) Swab Historical Provider LAB CYTOLOGY ORDERABLES F inal Result Performing Organization Address City/[facility]/ZIP Co de Phone Number [facility] [address] [place] [address] [phone] from Last 3 Months or Most Recently Relevant to Health Maintenance Insurance [facility] - HSN PARTIAL (MEDICAID) Care Teams Dining Room Attendant Relationship Specialty Start Date End Date Name, MD Corey [address] [place] [phone] PCP - General Internal Medicine 04/16/25
--- OUTSIDE RECORDS SUMMARY | 2025-05-10 11:08 | XMS_ITS | Encounter Summary ---
Author Organization [employer] Address [address] [facility] 7 [place] [address] Care Team Providers Care Picked Edge Sewing Machine Operator Name Role Phone Name, Corey NEVAREZ Primary Care Provider [phone] Reason for Visit * Reason Onset Date Comments chartprep 05/07/2025 Encounter Details Date Type Department Care Team ([facility] st Contact Info) Description 05/07/2025 Telephone [facility] [address] [place] [address] Ericka Gill, [facility] [address] [place] [address] chartprep Social History Tobacco Use Types Packs/Day Years [...] encounter Miscellaneous Notes * Telephone Encounter - Caprice Matthews [place] - 05/07/2025 11:47 AM EST Chart Prep Labs: not applicable Images: not applicable Screenings: Mammogram Vaccines due: Covid Due, Hep A Due, Hep B Due, PCV20 Due, and HPV Referrals: Not Applicable Overdue care gaps: SDOH documented in this encounter Plan of Treatment Upcoming Encounters Date Type Department Care Team (Late st Contact Info) Description 06/11/2025 8:00 AM EST Office Visit [facility] ADULT DENTAL [address] [place] [address] Chuck Pastrana [address] [place] [address] 09/24/2025 8:00 AM EDT Office Visit [facility] ADULT D[facility] [address] [place] [address] Kong Vázquez documented as of this encounter Visit Diagnoses Not on filedocumented in this encounter Additional Health Concerns Assessment Noted Time PHQ-9 Depression Total Score: 0 04/16/20 25 1:16 PM EDT documented as of this encounter Care Teams Picked Edge Sewing Machine Operator Relationship Specialty Start Date End Date Name, MD Corey [address] [place] [address] PCP - General Internal Medicine 04/16/25 documented as of this encounter
--- OUTSIDE RECORDS SUMMARY | 2025-05-10 11:08 | XMS_ITS | Clinical Summary ---
Author Organization [facility] Address [address] [place] [phone] Care Team Providers Care Publication Director Name Role Phone Dorys Alfaro Primary Care Provider [phone] Surgical History Surgery Date Site/Laterality Comments TUBAL LIGATION PROCEDURE: HISTORICAL TUBAL LIGATION APPENDECTOMY PROCEDURE: HISTORICAL APPENDECTOMY CERVICAL BIOPSY W/ LOOP ELECTRODE EXCISION 12/12/2017 PROCEDURE: [place] CONIZATION CERVIX W/WO D&C RPR ELTRD EXC Medical History Medical History Date Comments Asthma 07/09/2016 DX:Asthma Carpal tunnel syndrome, bilateral 06/22/2019 DX:Carpal tunnel syndrome, bilateral Fatty liver 07/09/2016 DX:Fatty liver GERD (gastroesophageal reflu x disease) 07/12/2016 DX:GERD (gastroesophageal re flux disease) History of abnormal cervical Pap smear 06/16/2017 DX:History of abnormal cervi toyin Pap smear; COMMENT: LSIL w/ + high [...] 09/22/2019 09/21/2018 Depression Screening 06/20/2024 COVID-19 Vaccine (1 - 2024-2 6 season) 2025 Influenza Vaccine (#1) 2025 RSV [...] RESULTING AGENCY - 09/29/2018 5:20 PM EDT [id number] THINPREP PAP, IMAGED: NEGATIVE FOR SQUAMOUS INTRAEPITHELIAL [...] Recently Relevant to Health Maintenance Care Teams Publication Director Relationship Specialty Start Date End Date Dorys Alfaro PA [address] [place] [phone] PCP - General Internal Medicine 04/05/17
[2025-05-23 07:17] VITALS: BP 118/59; PULSE 98; RESP 20; TEMP 36.6; O2SAT 97; BMI 26.8
--- NOTE | 2025-05-23 07:38 | MHC.SHP ---
Pre-Procedural Eval Section A - 24 Hr Update-Section A only Date of Service: 05/23/25 Changes since office visit: No Cold of Flu in the past 2 weeks, No New Medical Problems, No Changes in Medication and No Patient answered all questions The patient has been examined within 24 hours of the surgical procedure. The History & Physical has been completed within 30 days and I have reviewed it.: Yes Section B - Complete if H&P > 30 days Chief Complaint: Carpal tunnel syndrome, left upper limb Allergies: Allergies Allergy/AdvReac Type Severity Reaction Status Date / Time No Known Allergies (No Known Allergy Verified 04/19/25 08:41 Allergies*) Plan Diagnosis/Plan: Unchanged I have reviewed the history and physical and performed a pertinent physical examination on my patient. No changes have occurred unless specified. Time Spent With Patient Time: Total time managing care of this patient today ____ minutes.
--- NOTE | 2025-05-23 07:39 | P.OP_ITS ---
Operative Note Operative Note Date of Service: 05/23/25 Narrative: Preop diagnosis: 1. Left Carpal tunnel syndrome Postop diagnosis: same Procedure: 1. Left Carpal tunnel release Surgeon: Cyndi Robison MD Whipped Topping Mixer: Negrito LERNER Anesthesia: local block using 1% lidocaine with epinephrine Findings: Thickened transverse carpal ligament. EBL: Less than 5 mL Specimens: None Complications: None Disposition: Brought to recovery room in stable condition Plan: Follow-up for 10-14 days for wound check and suture removal Indications: The patient is 40 years old, with left carpal tunnel syndrome that has been unresponsive to nonoperative management. The risks and benefits of operative treatment including but not limited to risk of damage to blood vessels, nerves, tendons, infection, persistent pain, persistent symptoms, or possible need for additional surgery were discussed with the patient and the patient wishes to proceed with surgery. Procedure: Once consent was obtained a local block was performed using a combination of 1% lidocaine with epinephrine. The patient was then brought back to the operating suite and placed on the operative table in supine position. The left upper extremity was prepped and draped in a standard surgical fashion. Once assured that we had a good block, a 2.0 cm longitudinal incision was made centered over the carpal tunnel. The incision was made through the skin to the subcutaneous tissues using a #15 blade. Dissection was made down to the level of the transverse carpal ligament with care being taken to protect the palmar cutaneous nerve. Once the transverse carpal ligament was clearly visualized, a longitudinal incision was made in the transverse carpal ligament 1st using a #15 blade, then using tenotomy scissors under direct visualization. Care was taken to look for and protect the motor branch of the median nerve when seen in this area. Once satisfied with our carpal tunnel release the wound was copiously irrigated with normal saline and hemostasis was obtained with a brief period of local pressure. The skin edges were reapproximated with some 5.0 nylon suture material and a sterile dressing was applied. The patient appears to have tolerated the procedure well and with no complications. All digits were well vascularized at the conclusion of the case.
[2025-05-23 09:20] VITALS: BP 103/61; PULSE 66; RESP 18; O2SAT 97
== END 2025-05-23 09:28 | disposition home or self-care (01) ==
PROVIDERS: PCP Internal Medicine Geriatric Medicine; Visit Provider Orthopaedic Surgery
PROC: (CPT 64721; principal; 2025-05-23 09:10)
DX: G56.02 Carpal tunnel syndrome, left upper limb (principal); R20.0 Anesthesia of skin; R20.2 Paresthesia of skin; J45.909 Unspecified asthma, uncomplicated; Z98.890 Other specified postprocedural states; Z87.891 Personal history of nicotine dependence
CPT/HCPCS: 64721; J0165; J2003

== ENCOUNTER → 2025-05-23 07:07 | Outpatient (BNV) | payer OTHER, SELFPAY | PROVIDERS: PCP Internal Medicine Geriatric Medicine; Visit Provider Orthopaedic Surgery | DX: G56.02 Carpal tunnel syndrome, left upper limb (principal) | CPT/HCPCS: 64721 ==

== ENCOUNTER 2025-06-04 09:18 | Outpatient (AMB) | payer OTHER, SELFPAY ==
--- NOTE | 2025-06-04 09:21 | A.OFFVIS_ITS ---
Vital Signs 06/04/25 09:22 Height 5 ft 2 in Weight 146 lb BMI 26.7 Intake Visit Reasons: PO LT CTR 05/23/25 AR Intake Note: Camelia is a 40 year old right hand dominant male who presents today Post- operatively status post Left Carpal Tunnel Release, DOS: 05/23/[address] Robison. Patient reports she is doing well. Denies numbness, tingling, finger locking. She is taking Ibuprofen PRN with relief. Sutures removed and steri strips applied. Allergies No Known Allergies (No Known Allergies*) Allergy (Verified 06/04/25 09:29) HPI HPI PO LT CTR 05/23/25 AR: Details: Camelia is a 40 year old right hand dominant male who presents today Post-oper atively status post Left Carpal Tunnel Release, DOS: 05/23/[address] Robison. Patient reports she is doing well. Denies numbness, tingling, finger locking. She is taking Ibuprofen PRN with relief. No longer taking narcotic pain medication. Sutures removed and steri strips applied. [facility] Medical History (Updated 04/19/25 @ 12:15 by EDUARDA Joseph) Asthma Surgical History History of carpal tunnel release Social History (Updated 04/19/25 @ 08:43 by JESSICA Melara) Alcohol intake: current Alcohol intake frequency: holidays/special occasions only Patient Tobacco Use Status: Former Tobacco user e-Cigarette/Vaping Use: Currently Using Current occupational status: employed Current occupation: rt handed, [employer] Physical Exam Vital Signs: BMI result Body Mass Index 26.7 Extrem Other: Patient is alert, oriented, and in no acute distress. Neuro: Normal sensation of the tips of all digits of the left hand at this time Vascular: Cap refill brisk Pain: No tenderness to palpation about the incision site on volar left wrist ROM: Patient is able to make a closed fist and extend all digits of the left hand fully and without difficulty Skin: Well approximated and well healing incision site noted on volar left wrist No lacerations or abrasions. General: No ecchymosis, erythema, or evidence of infection. Psych: Appears grossly normal Affect normal Attitude cooperative Assessment & Plan Assessment & Plan (1) Left carpal tunnel syndrome: Code(s): G56.02 - Carpal tunnel syndrome, left upper limb Category: Medical Plan 1. Status post left carpal tunnel release DOS 05/23/2025 With good symptomatic resolution postoperatively Patient appears to be recovering well postoperatively Patient is educated about the typical recovery course No under water times one-week, 2 lb weight limit x2 weeks Patient appears to be recovering very well, and requires no further acute follow-up with us postoperatively Patient is educated and worrisome signs and symptoms, and should call us if they experience any of these, including but not limited to redness, swelling, increased pain, and discharge Patient understands this and is amenable to this plan Orders: Orders OT Evaluation and Treatment Today G56.02 - Carpal tunnel syndrome, left upper limb NE nerve conduction velocity Today R20.0 - Anesthesia of skin, R20.2 - Paresthesia of skin NE electromyogram (EMG) Today R20.0 - Anesthesia of skin, R20.2 - Paresthesia of skin Coding Level of Care Code Global (89305) Diagnoses Left carpal tunnel syndrome G56.02
[2025-06-04 09:22] VITALS: BMI 26.7
--- OUTSIDE RECORDS SUMMARY | 2025-06-04 10:46 | XMS_ITS | Clinical Summary ---
Author Organization [facility] Address [address] [place] [phone] Care Team Providers Care Trainer Name Role Phone Dorys Alfaro Primary Care Provider [phone] Surgical History Surgery Date Site/Laterality Comments TUBAL LIGATION PROCEDURE: HISTORICAL TUBAL LIGATION APPENDECTOMY PROCEDURE: HISTORICAL APPENDECTOMY CERVICAL BIOPSY W/ LOOP ELECTRODE EXCISION 12/12/2017 PROCEDURE: MA CONIZATION CERVIX W/WO D&C RPR ELTRD EXC [...] Orientation Not on file Plan of Treatment Health Maintenance Due Date [...] RESULTING AGENCY - 09/29/2018 5:20 PM EDT [id number] THINPREP PAP, IMAGED: NEGATIVE FOR SQUAMOUS INTRAEPITHELIAL [...] Recently Relevant to Health Maintenance Care Teams Trainer Relationship Specialty Start Date End Date Dorys Alfaro PA [address] [place] [phone] PCP - General Internal Medicine 04/05/17
--- OUTSIDE RECORDS SUMMARY | 2025-06-04 10:46 | XMS_ITS | Encounter Summary ---
Author Organization [employer] Address [address] [facility] [address] [place] [address] Care Team Providers Care Fiscal Assistant Name Role Phone Name, Corey NEVAREZ Primary Care Provider [phone] Encounter Details Date Type Department Care Team ([facility] Contact Info) Description 05/20/2025 Results Follow-Up [facility] [address] [place] [address] Ericka Gill CNM [address] [place] [address] Pap Smear Social History Tobacco Use Types Packs/Day Years [...] EST Office Visit [facility] [address] [place] [address] Chuck Pastrana [address] [place] [address] 07/30/2025 10:45 AM EST Office Visit [facility] [address] [place] [phone] Name, MD Corey [address] [place] [phone] 09/24/2025 8:00 AM EDT Office Visit [facility] [address] [place] [address] Kong Vázquez documented as of this encounter Visit Diagnoses Not on filedocumented in this encounter Additional Health Concerns Assessment Noted Time PHQ-9 Depression Total Score: 0 04/16/20 1:16 PM EDT documented as of this encounter Care Teams Fiscal Assistant Relationship Specialty Start Date End Date NameCorey MD [address] [place] [phone] PCP - General Internal Medicine 04/16/25 documented as of this encounter
--- OUTSIDE RECORDS SUMMARY | 2025-06-04 10:46 | XMS_ITS | Clinical Summary ---
Author Organization [employer] Address [address] [facility] [address] [place] [address] Care Team Providers Care Chairperson Anesthesiology Name Role Phone Name, Corey NEVAREZ Primary Care Provider [phone] Allergies No known active allergies Medications omeprazole (PriLOSEC) [address] capsule Take 1 capsule (40 mg) by mouth before breakfast. Do not crush or chew. 30 capsule 11 5 04/16/20 Active fluticasone (Flonase) 50 MCG/ACT nasal spray Administer 2 sprays into each nostril Once per day. Shake gently. Before first use, prime pump. After use, clean tip and replace cap. 16 g 2 5 04/16/20 Active albuterol 108 (90 Base) MCG/ACT inhaler Inhale 2 puffs every 6 (six) hours if needed for wheezing. 18 g 11 5 04/16/20 Active fluticasone furoate (Arnuity Ellipta) 100 MCG/ACT inhaler Inhale 1 puff Once per day. Rinse mouth with water after use to reduce aftertaste and incidence of candidiasis. Do not swallow. 1 each 11 5 04/16/20 Active albuterol (2.5 MG/3ML) 0.083% nebulizer solution Take 3 mL (2.5 mg) by nebulization every 4 (four) hours if needed for wheezing. 75 mL 3 5 04/16/20 Active celecoxib (CeleBREX) 200 MG capsule Take 1 capsule (200 mg) by mouth if needed each day for mild pain. 30 capsule 3 5 05/16/20 25 Active Problems Problem Noted Date Diagnosed Date [...] Encounters Date Type Department Care Team Description 05/20/2025 Results Follow-Up [address] [address] Wilian Miles CNM Pap Smear 05/09/2025 8:00 AM EST Office Visit [facility] [address] [place] [address] Chuck Pastrana 05/08/2025 11:15 AM EST Procedure Visit [address] [address] Wilian Miles CNM Cervical cancer screening (Primary Dx) 05/08/2025 Orders Only [address] [address] Wilian Miles CNM 05/08/2025 Travel 05/07/[address] [address] Wilian Miles CNM chartprep 04/18/2025 10:00 AM EDT Office Visit [facility] [address] [place] [address] Chuck Pastrana 04/16/2025 1:15 PM EDT Office Visit [address] [address] Name, MD Corey Uncomplicated asthma, unspecified asthma severity, unspecified whether persistent (Primary Dx); Allergic rhinitis, unspecified seasonality, unspecified trigger; Bilateral ovarian cysts; History of abnormal cervical Pap smear; Screening for cervical cancer; Family history of breast cancer; Encounter for screening for malignant neoplasm of breast, unspecified screening modality; Encounter for immunization; Heartburn; Screening for cholesterol level; Screening for diabetes mellitus 04/16/2025 Travel 04/15/2025 Telephone [facility] [address] [place] [address] Corey Luevano MD Chart Prep 04/09/2025 Patient Outreach [facility] [address] [place] [address] Corey Luevano MD Pre-visit Planning ([facility] unable to reach [facility] ) 03/26/2025 1:00 PM EDT Office Visit [facility] [address] [place] [address] Chuck Pastrana 03/25/2025 11:00 AM EDT Office Visit [facility] [address] [place] [address] Chuck Pastrana 03/22/2025 Travel 03/21/2025 8:00 AM EDT Office Visit [facility] [address] [place] [address] Faviola Maciel from Last 3 Months Immunizations Immunization Administration [...] AM EST Office Visit [facility] [address] [place], [place] [phone] Sunni Pastranaricio [address] [place] [address] 07/30/2025 10:45 AM EST Office Visit [facility] [address] [place] [address] Name, MD Corey [address] [place] [address] 09/24/2025 8:00 AM EDT Office Visit [facility] [address] [place] [address] Kong Vázquez Health Maintenance Due Date Last [...] 04/16/2026 04/16/2025, 04/16/2025 Disability Screening 04/16/2026 04/16/2025 Cervical Cancer Screening 05/08/2026 Family Planning (PISQ) 05/08/2026 05/08/2025 HPV/Cotest 05/08/2026 05/08/2025 Pap Smear 05/08/2026 05/08/2025, 09/29/2018 SDOH Screening 05/08/2026 05/08/2025 Tobacco Screening 05/09/2026 [...] SURF, POSTERIOR Routine 05/09/2025 8:00 AM EST PAP SMEAR Routine 05/08/2025 11:40 AM EST Cervical cancer screening HPV DNA, LOW/HIGH RISK Routine 11:40 AM EST LIPID PANEL, STANDARD Routine 04/22/2025 [...] Recently Relevant to Health Maintenance Results * HPV DNA, Low/High Risk (05/08/2025 11:40 AM EST) HPV High Risk Negative Negative [facility] HPV Genotype 16 Negative Negative [facility] HPV Genotype 18 Negative Negative [facility] Comment:HPV testing performe d at [facility] (CLIA#[id number]), [address] [place] [id number].Testing for HPV was performed using the Maryse ELHAM 6800system. The presence of HPV in the female genital tract isassociated with a number of diseases, including cervicalcarcinoma. The HPV DNA high risk pool tests for HPV 31, 33,35, 39, 45, 51, 52, 56, 58, 59, 66 and 68. The testing forHPV 16 and 18 genotypes has also been performed. A positiveresult indicates detection of nucleic acid sequences fromone or more subtypes, whereas a negative result indicatessuch sequences were not detected. 05/08/2025 11:4 0 AM EST 05/10/2025 7:57 AM EST us Wilian Miles [facility] LAB BLOOD ORDERABLES Micheline l Result [facility] [address] [place] [phone] * Pap Smear (05/08/2025 11:40 AM EST) Swab Cervix uteri structure / Unknown 05/08/2025 11:40 AM EST 05/09/2025 3:10 PM EST Narrative [facility] - 05/17/2025 7:51 AM EST ----- ------- Name: Lamar EduardoRenzoCamelia Age/Sex: 40/F : 1985 Unit#: [id number] Attend Dr: WILIAN MILES Re05/08/25 Status: DEP REF Location: [facility] Disch: ----- ------- SPEC : [id number] RECD: 05/09/25 STATUS: ADRIANO CRONIN NUM: [id number] FIDENCIO: 05/08/25-[address] [facility] [address]: WILIAN MILES CNM ENTERED: 05/10/25 SP TYPE: Pap Smr OTHR DR: ORDERED: Pap Smear Interpretation Satisfactory for evaluation. Negative for intraepithelial lesion or malignancy. No endocervical cells seen. Coccobacilli consistent with shift in vaginal anna marie. HPV High Risk: Negative HPV Genotyping 16: Negative HPV Genotyping 18: Negative Clinical Information LMP: Previous PAP test: 09/2018 NIL/HPV neg, STEPHANIE 2 Other surgery: Other history: Material Received ThinPrep-Cervical ----- ------- Signed (signature on file) ROB Raya (ASCP) 05/17/25 0751 ----- ------- END OF REPORT us Wilian Miles CNM LAB CYTOLOGY ORDERABLES F inal Result [facility] [address] [place] [phone] * (ABNORMAL) CBC auto differential (04/22/2025 8:09 AM EST) White Blood Count 6.5 4.8 - 10.8 X10*3/uL [facility] Red Blood Count 4.93 4.20 - 5.50 X10*6/uL [facility] Hemoglobin 12.7 12.0 - 16.0 g/dl [facility] Hematocrit 41.4 37.0 - 47.0 % [facility] Mean Corpuscular Volume 84.0 80.0 - 98.0 fL [facility] Mean Corpuscular Hemoglobin 25.8(L) 27.0 - 33.0 pg [facility] Mean Corpuscular HGB Conc 30.7(L) 31.0 - 35.0 g/dl [facility] Red Cell Distribution Width 13.6 11.0 - 16.0 % [facility] Platelet Count 225 160 - 400 X10*3/uL [facility] Mean Platelet Volume 14.0(H) 9.4 - 12.3 fL [facility] Neutrophils Percent Auto 50.2 45 - 73 % [facility] Imm Gran Pct Auto 0.5(H) 0.0 - 0.4 % [facility] Lymphocytes Percent Auto 29.2 20 - 40 % [facility] Monocytes Percent Auto 9.3 2 - 11 % [facility] Eosinophils Percent Auto 9.3(H) 0 - 4 % [facility] Basophils Percent Auto 1.5 0 - 2 % [facility] NRBC Pct Auto 0.0 0.0 - 0.2 /100WBC [facility] Neutrophils Absolute Auto 3.3 2.0 - 8.3 x10*3/uL [facility] Imm Gran Abs Auto 0.03 0.00 - 0.03 X10*3/uL [facility] Lymphocytes Absolute Auto 1.9 1.2 - 4.9 X10*3/uL [facility] Monocytes Absolute Auto 0.6 0.1 - 1.2 X10*3/uL [facility] Eosinophils Absolute Auto 0.6(H) 0.0 - 0.4 X10*3/uL [facility] Basophils Absolute Auto 0.1 0.0 - 0.2 X10*3/uL [facility] NRBC Abs Auto 0.000 0.0 - 0.012 X10*3/uL [facility] Blood Venous blood specimen / Unknown 04/22/2025 8:09 AM EST 04/22/2025 11:27 AM EST Corey Luevano MD LAB BLOOD ORDERABLES Edited Resu lt - Final Performing Organization Address City/[facility]/ZIP Co de Phone Number [facility] [address] [place] [phone] * (ABNORMAL) Lipid Panel, Standard (04/22/2025 8:09 AM EST) Triglycerides 68 <150 mg/dL [facility] Comment:Desirable Triglyceri de: less than 150 mg/dLBorderline High Triglyceride 150-199 mg/dLHigh Triglyceride: 200-499 mg/dLVery High Triglyceride: greater than or equal to 5OO mg/dL Cholesterol 194 <200 mg/dL [facility] Comment:Desirable Cholestero l: less than 200 mg/dLBorderline High Cholesterol: 200-239 mg/dLHigh Cholesterol: greater than 239 mg/dL LDL Cholesterol Calculated 119(H) <100 mg/dL [facility] Comment:Desirable LDL: less than 100 mg/dLNear Optimal/Above Optimal LDL: 110- 129 mg/dLBorderline High LDL: 130-159 mg/dLHigh LDL: 160-189 mg/dLVery High LDL: greater than or equal to 190 mg/dL HDL Cholesterol 62 >40 mg/dL [facility] Comment:Desirable HDL: great er than 40 mg/dL Note: This HDL assay may give artificially low results in patients with liver disease. Blood Venous blood specimen / Unknown 04/22/2025 8:09 AM EST 04/22/2025 11:27 AM EST us Corey Luevano MD LAB BLOOD ORDERABLES Final Resul t Performing Organization Address City/[facility]/ZIP Co de Phone Number [facility] [address] [place] [phone] * (ABNORMAL) Comprehensive Metabolic Panel (04/22/2025 8:09 AM EST) Sodium 140 135 - 145 mmol/L [facility] Potassium 4.3 3.3 - 5.1 mmol/L [facility] Chloride 109(H) 96 - 108 mmol/L [facility] Carbon Dioxide 26 22 - 29 mmol/L [facility] Anion Gap 9(L) 12 - 20 [facility] Urea Nitrogen (BUN) 10 9 - 16 mg/dL [facility] Creatinine, Serum 0.68 0.5 - 1.4 mg/dL [facility] Estimated Glomerular Filt Rate >60 [facility] Comment:Chronic Kidney Disea se: Estimated GFR < 60 mL/min/1.46y1Nsvtsi Kidney Disease: Estimated GFR < 15 mL/min/1.73m2 Glucose 86 60 - 115 mg/dL [facility] Calcium 9.1 8.4 - 10.2 mg/dL [facility] Bilirubin, Total 0.4 0.0 - 1.0 mg/dL [facility] Aspartate Amino Transferase 43(H) 5 - 31 U/L [facility] Alanine Aminotransferase 67(H) 0 - 31 U/L [facility] Total Protein 7.1 6.5 - 8.0 g/dL [facility] Albumin Level 4.1 3.5 - 5.0 g/dL [facility] Alkaline Phosphatase 170(H) 39 - 117 U/L [facility] Blood Venous blood specimen / Unknown 04/22/2025 8:09 AM EST 04/22/2025 11:27 AM EST us Corey Luevano MD LAB BLOOD ORDERABLES Final Resul t [facility] [address] [place] [address] [phone] from Last 3 Months Insurance [facility] D[facility] - [place] PARTIAL (MEDICAID) Care Teams Chairperson Anesthesiology Relationship Specialty Start Date End Date Name, MD Corey [address] [place] [address] PCP - General Internal Medicine 04/16/25
== END 2025-06-04 09:47 | disposition home or self-care (01) ==
LOC: HO.HOS 09:19
PROVIDERS: PCP Internal Medicine Geriatric Medicine
DX: G56.02 Carpal tunnel syndrome, left upper limb (principal)
CPT/HCPCS: 99024

== ENCOUNTER → 2025-06-04 09:18 | Outpatient (BNVA) | payer OTHER, SELFPAY | PROVIDERS: PCP Internal Medicine Geriatric Medicine | DX: G56.02 Carpal tunnel syndrome, left upper limb (principal); R20.0 Anesthesia of skin; R20.2 Paresthesia of skin; Z98.890 Other specified postprocedural states | CPT/HCPCS: 99212 ==